=== PATIENT | male | born 1980 | race African-American/Black ===

== ENCOUNTER 2017-01-21 20:49 | Inpatient (IN) | payer OTHER ==
[~2017-01-21] VITALS: Ht 172.7 cm; Wt 67.1 kg
[2017-01-21 21:03] VITALS: BP 153/87; PULSE 81; RESP 16; TEMP 98.6; O2SAT 99
[2017-01-21 22:01] LABS: AUTOMATED NEUTROPHIL # 5.8 TH/MM3 (1.8-7.7); BASOPHIL # 0.1 TH/MM3 (0-0.2); BASOPHIL % 0.9 % (0.0-2.0); EOSINOPHIL # 0.3 TH/MM3 (0-0.4); EOSINOPHIL % 2.9 % (0.0-4.0); HEMATOCRIT 43.6 % (39.0-51.0); HEMO FLAGS DIFF FINAL; LYMPH % 35.9 % (9.0-44.0); MEAN CELL VOLUME 90.8 FL (80.0-100.0); MEAN CORPUSCULAR HEMOGLOBIN 30.4 PG (27.0-34.0); MEAN CORPUSCULAR HGB CONC 33.5 % (32.0-36.0); MONO % 8.7 % (0.0-8.0); NEUT % 51.6 % (16.0-70.0); PLATELET COUNT 249 TH/MM3 (150-450); RED BLOOD COUNT 4.81 MIL/MM3 (4.50-5.90); RED CELL DISTRIBUTION WIDTH 13.7 % (11.6-17.2); WHITE BLOOD COUNT 11.2 TH/MM3 (4.0-11.0)
--- NOTE | 2017-01-21 22:09 | PD ---
HPI . Hallucinations Chief Complaint: Psychiatric Symptoms Time Seen by Provider: 21:25 Travel History International Travel<30 days: No Contact w/Intl Traveler<30days: No Traveled to known affect area: No History of Present Illness HPI I was unable to obtain any history at all from this patient because he basically told me that he wanted me to leave the room. He is a Almanzar Act. He was brought to us because of hallucinations. Do not know his name. He is from [place]. He reportedly has a history of schizophrenia. PFSH Past Medical History Diminished Hearing: No Tetanus Vaccination: Unknown Social History Alcohol Use: Yes Tobacco Use: No Allergies-Medications (Allergen,Severity, Reaction): Coded Allergies: No Known Allergies (Unverified , 01/21/17) Review of Systems ROS Limitations: Uncooperative Physical Exam Narrative GENERAL: Awake and alert and in no acute distress. SKIN: Warm and dry. HEAD: Normocephalic/atraumatic. EYES: Pupils are equal. Extraocular movements are intact. NECK: Normal range of motion. CARDIOVASCULAR: Regular rate and rhythm. RESPIRATORY: Nonlabored respirations. MUSCULOSKELETAL: Atraumatic. NEUROLOGICAL: Nonfocal. PSYCHIATRIC: Unable to assess. Data Data Last Documented VS Vital Signs Date Time Temp Pulse Resp B/P (MAP) Pulse Ox O2 Delivery O2 Flow Rate FiO2 01/21/17 21:03 98.6 81 16 153/87 (109) 99 Orders Orders Complete Blood Count With Diff (01/21/17 21:25) Comprehensive Metabolic Panel (01/21/17 21:25) Psych Screen (01/21/17 21:25) Drug Screen, Random Urine (01/21/17 21:25) Alcohol (Ethanol) (01/21/17 21:25) Labs Laboratory Tests Test 01/21/17 21:35 White Blood Count 11.2 TH/MM3 Red Blood Count 4.81 MIL/MM3 Hemoglobin 14.6 GM/DL Hematocrit 43.6 % Mean Corpuscular Volume 90.8 FL Mean Corpuscular Hemoglobin 30.4 PG Mean Corpuscular Hemoglobin Concent 33.5 % Red Cell Distribution Width 13.7 % Platelet Count 249 TH/MM3 Mean Platelet Volume 9.3 FL Neutrophils (%) (Auto) 51.6 % Lymphocytes (%) (Auto) 35.9 % Monocytes (%) (Auto) 8.7 % Eosinophils (%) (Auto) 2.9 % Basophils (%) (Auto) 0.9 % Neutrophils # (Auto) 5.8 TH/MM3 Lymphocytes # (Auto) 4.0 TH/MM3 Monocytes # (Auto) 1.0 TH/MM3 Eosinophils # (Auto) 0.3 TH/MM3 Basophils # (Auto) 0.1 TH/MM3 CBC Comment DIFF FINAL Differential Comment Blood Urea Nitrogen 10 MG/DL Creatinine 0.98 MG/DL Random Glucose 96 MG/DL Total Protein 7.9 GM/DL Albumin 4.0 GM/DL Calcium Level 8.6 MG/DL Alkaline Phosphatase 84 U/L Aspartate Amino Transf (AST/SGOT) 53 U/L Alanine Aminotransferase (ALT/SGPT) 38 U/L Total Bilirubin 0.3 MG/DL Sodium Level 140 MEQ/L Potassium Level 3.8 MEQ/L Chloride Level 107 MEQ/L Carbon Dioxide Level 26.4 MEQ/L Anion Gap 7 MEQ/L Estimat Glomerular Filtration Rate 80 ML/MIN Ethyl Alcohol Level LESS THAN 3 MG/DL MDM Medical Decision Making Medical Screen Exam Complete: Yes Emergency Medical Condition: Yes Differential Diagnosis Differential diagnosis of psychosis includes but is not limited to schizophrenia , schizoaffective disorder, bipolar disorder, intoxication, substance abuse, dementia Narrative Course This patient is brought to us as a Almanzar Act because of hallucinations. I have initiated a medical clearance exam. Psych screening will then be consult. CBC & BMP Diagram 01/21/17 21:35 Total Protein 7.9, Albumin 4.0, Calcium Level 8.6, Alkaline Phosphatase 84, Aspartate Amino Transf (AST/SGOT) 53 H, Alanine Aminotransferase (ALT/SGPT) 38, Total Bilirubin 0.3 EtOH neg. This patient is medically clear for psychiatric evaluation. Diagnosis Primary Impression: Acute psychosis Condition: Stable Lolis Grady MD Jan 21, 2017 22:09
[2017-01-21 22:28] LABS: ALT (GPT) 38 U/L (12-78)
[2017-01-21 22:31] LABS: ALKALINE PHOSPHATASE 84 U/L (45-117); TOTAL BILIRUBIN ADULT 0.3 MG/DL (0.2-1.0)
[2017-01-21 22:33] LABS: ALCOHOL LESS THAN 3 MG/DL (0-5); ANION GAP 7 MEQ/L (5-15); AST (GOT) 53 U/L (15-37); BICARBONATE 26.4 MEQ/L (21.0-32.0); BLOOD UREA NITROGEN 10 MG/DL (7-18); CHLORIDE 107 MEQ/L (98-107); GLOMERULAR FILTRATION RATE 80 ML/MIN (>89); POTASSIUM 3.8 MEQ/L (3.5-5.1); SODIUM (NA) 140 MEQ/L (136-145)
[2017-01-21] MEDS ORDERED: OLAN20TA PO (22:56)
[2017-01-21] MEDS ORDERED: QUET-88 PO (22:56)
[2017-01-21] MEDS ORDERED: OLAN10TA PO (22:56)
[2017-01-21] MEDS ORDERED: VALP250C PO (22:56)
[2017-01-21] MEDS: QUEtiapine FUMARATE 200 MG TAB PO SCH (23:15)
[2017-01-21] MEDS: VALPROIC ACID 250 MG CAP PO SCH (23:15)
[2017-01-22 03:13] VITALS: BP 100/52; PULSE 76; RESP 18; TEMP 98.2; O2SAT 99
[2017-01-22 06:00] VITALS: BP 100/56; PULSE 73; RESP 16; TEMP 99; O2SAT 100
[2017-01-22] MEDS: VALPROIC ACID 250 MG CAP PO SCH ×3 (09:00→21:05)
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
[2017-01-22] MEDS ORDERED: OLANZapine ODT 10 MG TAB PO ONE (13:00)
[2017-01-22 14:00] VITALS: BP 118/59; PULSE 67; RESP 20
[2017-01-22 18:00] VITALS: BP 122/58; PULSE 77; RESP 20
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
[2017-01-22] MEDS ORDERED: MAGNESIUM HYDROXIDE SUSP 30 ML CUP PO PRN (18:15)
[2017-01-22] MEDS ORDERED: ACETAMINOPHEN 325 MG TAB PO PRN (18:15)
[2017-01-22] MEDS ORDERED: LORazepam 1 MG TAB PO PRN (18:15)
[2017-01-22] MEDS ORDERED: LORazepam 2 MG/ML VIAL IM PRN ×2 (18:15)
[2017-01-22] MEDS ORDERED: diphenhydrAMINE HCL 50 MG CAP PO PRN ×2 (18:15)
[2017-01-22] MEDS ORDERED: ALUMINUM/MAGNESIUM/SIMETH 30 ML CUP PO PRN (18:15)
[2017-01-22] MEDS ORDERED: LORazepam 0.5 MG TAB PO PRN (18:15)
[2017-01-22 19:55] VITALS: BP 130/75; PULSE 67; RESP 18; TEMP 98.3; O2SAT 100
[2017-01-22] MEDS: QUEtiapine FUMARATE 200 MG TAB PO SCH ×2 (21:00→21:05)
[2017-01-22] MEDS: OLANZapine 10 MG TAB PO SCH ×2 (21:00→21:06)
[2017-01-23 06:21] VITALS: BP 127/58; PULSE 70; RESP 16; TEMP 97.9; O2SAT 96
[2017-01-23] MEDS: NICOTINE 21 MG/24 HR PATCH T-DERMAL SCH (09:00)
[2017-01-23] MEDS: OLANZapine 10 MG TAB PO SCH ×2 (09:00→21:00)
[2017-01-23] MEDS: REMOVE OLD PATCH T-DERMAL SCH (09:00)
[2017-01-23] MEDS: VALPROIC ACID 250 MG CAP PO SCH ×2 (09:00→20:20)
[2017-01-23] MEDS ORDERED: INFLUENZA VIRUS VACCINE (QUADRIVALENT) 0.5 ML SYR IM ONE (09:00)
--- NOTE | 2017-01-23 13:06 | EKG ---
Date Performed: 01/23/2017 Time Performed: 11:39:02 PTAGE: 89 years EKG: Prominent precordial voltage Otherwise within normal limits NO PREVIOUS TRACING DOCTOR: Mohsen Patrick Interpretating Date/Time 01/23/2017 13:05:29
--- NOTE | 2017-01-23 15:49 | HHI.PYPN ---
Subjective Chief Complaint: psychosis Remarks This is a request for second opinion. Admission note was reviewed and I agree with this contents. Patient was seen and case was discussed with nursing. Patient has poor insight. His speech is incoherent and is thought process is quite disorganized to the point of being loose. Thought blocking. Continues to refuses by mouth medications. However, no behavioral outbursts on the unit. Mental Status Examination Appearance: Appropriate (under [facility]) Consciousness: Alert Orientation: x4 Motor Activity: Normal gait Speech: Other (answer some questions but for the most part refuses to engage in evaluation) Language: Adequate Fund of Knowledge: Adequate (unable to assess) Attention and Concentration: Inadequate Memory: Unremarkable (and able to assess) Mood: Oppositional Affect: Other (inappropriate smiles the time) Thought Process & Associations: Loose associations Thought Content: Bizarre thinking Hallucination Type: Auditory (appears internally stimulated at times) Delusion Type: None Suicidal Ideation: No Suicidal Plan: No Suicidal Intention: No Homicidal Ideation: No Homicidal Plan: No Homicidal Intention: No Insight: Poor Judgment: Impulsive Results Vitals/IOs Vital Signs Date Time Temp Pulse Resp B/P (MAP) Pulse Ox O2 Delivery O2 Flow Rate FiO2 01/23/17 06:21 97.9 70 16 127/58 (81) 96 01/22/17 18:00 Room Air Assessment & Plan Problem List: (1) Schizoaffective disorder ICD Codes: F25.9 - Schizoaffective disorder, unspecified Assessment & Plan Patient would benefit from a long-acting injection. I recommend treating psychiatrist make a plan with mother next week. I agree with the first opinion to continue petition. Criteria include acute psychosis and poor compliance Justification for Cont. Inpt. Patient would decompensate in a less restrictive setting Victoriano Manuel DO Jan 23, 2017 15:49
[2017-01-23] MEDS ORDERED: OLANZapine 10 MG TAB PO ONE (16:30)
[2017-01-23] MEDS ORDERED: VALPROIC ACID 250 MG CAP PO ONE (16:45)
[2017-01-23 17:18] VITALS: BP 129/74; PULSE 67; RESP 18; TEMP 98.4; O2SAT 100
[2017-01-23] MEDS: QUEtiapine FUMARATE 200 MG TAB PO SCH (20:20)
[2017-01-24 05:47] VITALS: BP 91/52; PULSE 61; RESP 18; TEMP 98; O2SAT 100
[2017-01-24] MEDS: OLANZapine 10 MG TAB PO SCH ×2 (09:00→22:12)
[2017-01-24] MEDS: NICOTINE 21 MG/24 HR PATCH T-DERMAL SCH (09:00)
[2017-01-24] MEDS: VALPROIC ACID 250 MG CAP PO SCH ×2 (09:00→22:13)
[2017-01-24] MEDS: REMOVE OLD PATCH T-DERMAL SCH (09:00)
--- NOTE | 2017-01-24 21:04 | HHI.PYPN ---
Subjective Chief Complaint: psychosis Remarks Patient seen for follow up; chart reviewed. Discussion with nursing staff reported that the patient was paranoid and refusing medications but later was compliant. Patient was found lying on hospital bed, with covers over his head and intermittently cooperative. He states that he lives with his mother and when asked how to spell his mother's first name he states that he had forgotten. Patient noted with thought blocking and internal preoccupation. He states "I can't remember", denies any perceptual disturbances, denies paranoid delusions. He states that when he is at home he usually reads books. Review of Systems Except as stated in HPI: all other systems reviewed are Neg Mental Status Examination Appearance: Appropriate (under [facility]) Consciousness: Alert Orientation: x4 Motor Activity: Normal gait Speech: Other (answer some questions but for the most part refuses to engage in evaluation) Language: Adequate Fund of Knowledge: Adequate (unable to assess) Attention and Concentration: Inadequate Memory: Unremarkable (and able to assess) Mood: Other Affect: Blunt Thought Process & Associations: Loose associations, Disorganized Thought Content: Bizarre thinking Hallucination Type: Auditory (appears internally stimulated at times) Delusion Type: None Suicidal Ideation: No Suicidal Plan: No Suicidal Intention: No Homicidal Ideation: No Homicidal Plan: No Homicidal Intention: No Insight: Poor Judgment: Impulsive Results Vitals/IOs Vital Signs Date Time Temp Pulse Resp B/P (MAP) Pulse Ox O2 Delivery O2 Flow Rate FiO2 01/24/17 05:47 98.0 61 18 91/52 (65) 100 01/22/17 18:00 Room Air Assessment & Plan Problem List: (1) Schizoaffective disorder ICD Codes: F25.9 - Schizoaffective disorder, unspecified Assessment & Plan Patient continues to be noted with thought blocking and internally preoccupied, unable to engage effectively in interview but noted to have more attention to conversation. As patient was recently restarted on his medication regimen, no changes for now. Will continue current treatment and obtain depakote level again as his initial value was subtherapeutic. Collateral from mother pending. Discharge planning in progress. Justification for Cont. Inpt. At risk for further decompensation if at lower level of care. Discharge Planning Patient to return back to his mother's residence once psychiatrically stable. Mateo Chavira MD Jan 24, 2017 21:04
[2017-01-24 21:30] VITALS: BP 128/71; PULSE 61; RESP 18; TEMP 96.7; O2SAT 99
[2017-01-24] MEDS: QUEtiapine FUMARATE 200 MG TAB PO SCH (22:12)
[2017-01-25 06:33] VITALS: BP 102/56; PULSE 69; RESP 16; TEMP 98.1; O2SAT 100
[2017-01-25] MEDS: VALPROIC ACID 250 MG CAP PO SCH ×2 (08:45→21:49)
[2017-01-25] MEDS: OLANZapine 10 MG TAB PO SCH ×2 (08:45→16:43)
[2017-01-25] MEDS: NICOTINE 21 MG/24 HR PATCH T-DERMAL SCH (08:46)
[2017-01-25] MEDS: REMOVE OLD PATCH T-DERMAL SCH (08:46)
[2017-01-25 12:38] LABS: ANION GAP 5 MEQ/L (5-15); BICARBONATE 26.2 MEQ/L (21.0-32.0); BLOOD UREA NITROGEN 11 MG/DL (7-18); CHLORIDE 109 MEQ/L (98-107); GLOMERULAR FILTRATION RATE 146 ML/MIN (>89); POTASSIUM 4.1 MEQ/L (3.5-5.1); SODIUM (NA) 140 MEQ/L (136-145)
[2017-01-25 12:49] LABS: HDL CHOLESTEROL 56.6 MG/DL (40.0-60.0); LDL CHOLESTEROL 56 MG/DL (0-99)
[2017-01-25 13:54] LABS: HEMOGLOBIN A1a 1.5 %; HEMOGLOBIN A1b 0.7 %; HEMOGLOBIN F 0.9 %; HEMOGLOBIN LA1C 1.7 %; HEMOGLOBIN P3 3.1 %
--- NOTE | 2017-01-25 14:48 | HHI.PYPN ---
Subjective Chief Complaint: psychosis Remarks Patient seen for follow-up, chart reviewed. Discussion she staff reported the patient has limited interaction with staff. Patient was found lying in hospital bed with covers over his head stating feeling "fine, alright" and continues report at the same response to multiple questions. Patient was alert and oriented only to person stating the brother United Jeffery was Thompson. Patient denies any perceptual disturbances or delusions but noted to be disorganized and unable to engage effectively in interview today. Review of Systems Except as stated in HPI: all other systems reviewed are Neg Mental Status Examination Appearance: Appropriate (under hospital [facility]) Consciousness: Alert Orientation: x4 Motor Activity: Normal gait Speech: Other (answer some questions but for the most part refuses to engage in evaluation) Language: Adequate Fund of Knowledge: Adequate (unable to assess) Attention and Concentration: Inadequate Memory: Unremarkable (and able to assess) Mood: Other ("fine, alright") Affect: Blunt Thought Process & Associations: Loose associations, Disorganized Thought Content: Bizarre thinking Hallucination Type: Auditory (appears internally stimulated at times) Delusion Type: None Suicidal Ideation: No Suicidal Plan: No Suicidal Intention: No Homicidal Ideation: No Homicidal Plan: No Homicidal Intention: No Insight: Poor Judgment: Impulsive Results Labs Labs reviewed Test 01/25/17 11:30 Blood Urea Nitrogen 11 MG/DL Creatinine 0.73 MG/DL Random Glucose 97 MG/DL Calcium Level 8.6 MG/DL Sodium Level 140 MEQ/L Potassium Level 4.1 MEQ/L Chloride Level 109 MEQ/L Carbon Dioxide Level 26.2 MEQ/L Anion Gap 5 MEQ/L Estimat Glomerular Filtration Rate 146 ML/MIN Hemoglobin A1c 5.4 % Triglycerides Level 103 MG/DL Cholesterol Level 133 MG/DL LDL Cholesterol 56 MG/DL HDL Cholesterol 56.6 MG/DL Cholesterol/HDL Ratio 2.34 RATIO Thyroid Stimulating Hormone 3rd Gen 1.270 uIU/ML Vitals/IOs Vital Signs Date Time Temp Pulse Resp B/P (MAP) Pulse Ox O2 Delivery O2 Flow Rate FiO2 01/25/17 06:33 98.1 69 16 102/56 (71) 100 01/22/17 18:00 Room Air Intake and Output 01/25/17 01/25/17 01/26/17 08:00 16:00 00:00 Intake Total 960 ml 480 ml Balance 960 ml 480 ml Assessment & Plan Problem List: (1) Schizoaffective disorder ICD Codes: F25.9 - Schizoaffective disorder, unspecified Assessment & Plan He continues to be disorganized, internally preoccupied, unable to engage effectively in interview at times making nonsensical gestures and answering appropriately. Due to history of patient cheeking medications will advise staff for mouth checks when administering medications. We'll increase quetiapine 25 mg by mouth 0900 hrs. and 1600 hrs., Continue rest of medications. Collateral pending from patient's mother. Discharge planning in progress Justification for Cont. Inpt. At risk for further decompensation if at lower level of care Discharge Planning Patient to return back to his residence was psychiatrically stable. Mateo Chavira MD Jan 25, 2017 14:48
[2017-01-25] MEDS: QUEtiapine FUMARATE 25 MG TAB PO SCH (16:43)
[2017-01-25 18:00] VITALS: BP 138/67; PULSE 83; RESP 18; TEMP 97.6; O2SAT 96
[2017-01-25] MEDS: QUEtiapine FUMARATE 200 MG TAB PO SCH (21:49)
[2017-01-26 06:00] VITALS: BP 95/54; PULSE 73; RESP 17; TEMP 97.7; O2SAT 98
[2017-01-26] MEDS: VALPROIC ACID 250 MG CAP PO SCH ×2 (08:22→21:00)
[2017-01-26] MEDS: OLANZapine 10 MG TAB PO SCH ×2 (08:22→21:19)
[2017-01-26] MEDS: QUEtiapine FUMARATE 25 MG TAB PO SCH ×2 (08:23→15:44)
[2017-01-26] MEDS: REMOVE OLD PATCH T-DERMAL SCH (08:24)
[2017-01-26] MEDS: NICOTINE 21 MG/24 HR PATCH T-DERMAL SCH (08:24)
--- NOTE | 2017-01-26 16:10 | HHI.PYPN ---
Subjective Chief Complaint: psychosis Remarks Patient seen for follow-up, chart reviewed. Discussion she staff reported that patient will interact with staff, and appears to be internally still stimulated and initially refused medication last evening but did take. Patient was found in the [facility], cooperative interview today. Patient states that he is feeling "terrific". Patient stated he started medications well. Whenever asked a question about his history patient simply states "I can't remember". Patient was able to state that he lives with his mother "sometimes" and when asked what else he lives aside from with his mother he states "I can't remember ". Patient denies any perceptual disturbances or delusions and has questions with "something like that". And noted to be disorganized and unable to recall information adequately. Review of Systems Except as stated in HPI: all other systems reviewed are Neg Mental Status Examination Appearance: Appropriate (under [facility]) Consciousness: Alert Orientation: x4 Motor Activity: Normal gait Speech: Other (answer some questions but for the most part refuses to engage in evaluation) Language: Adequate Fund of Knowledge: Adequate (unable to assess) Attention and Concentration: Inadequate Memory: Unremarkable (and able to assess) Mood: Other ("fine, alright") Affect: Blunt Thought Process & Associations: Loose associations, Disorganized Thought Content: Bizarre thinking, Thought blocking Hallucination Type: Auditory (appears internally stimulated at times) Delusion Type: None Suicidal Ideation: No Suicidal Plan: No Suicidal Intention: No Homicidal Ideation: No Homicidal Plan: No Homicidal Intention: No Insight: Poor Judgment: Impulsive Results Vitals/IOs Vital Signs Date Time Temp Pulse Resp B/P (MAP) Pulse Ox O2 Delivery O2 Flow Rate FiO2 01/26/17 06:00 97.7 73 17 95/54 (68) 98 01/22/17 18:00 Room Air Assessment & Plan Problem List: (1) Schizoaffective disorder ICD Codes: F25.9 - Schizoaffective disorder, unspecified Assessment & Plan Patient at this time continues to be noted to be disorganized but was noted to be interactive slightly more today than yesterday. Agrees quetiapine to 50 mg by mouth twice a day along with 400 mg at bedtime. Continue rest of medications. Attempt to obtain collateral from his mother (Candelario Dia ) was unsuccessful but typewriters functional tester left voice message for patient's mother to call back. Discharge planning in progress Justification for Cont. Inpt. At risk for further decompensation if at lower level of care Discharge Planning He should return back to his mother's residence once psychiatrically stable. Mateo Chavira MD Jan 26, 2017 16:10
[2017-01-26 16:44] VITALS: BP 120/58; PULSE 79; RESP 18; TEMP 98.2; O2SAT 100
[2017-01-26] MEDS: QUEtiapine FUMARATE 200 MG TAB PO SCH (21:19)
[2017-01-27 05:31] VITALS: BP 105/57; PULSE 77; RESP 16; TEMP 97.6; O2SAT 98
[2017-01-27] MEDS: NICOTINE 21 MG/24 HR PATCH T-DERMAL SCH (08:43)
[2017-01-27] MEDS: REMOVE OLD PATCH T-DERMAL SCH (08:43)
[2017-01-27] MEDS: OLANZapine 10 MG TAB PO SCH ×2 (08:43→21:03)
[2017-01-27] MEDS: VALPROIC ACID 250 MG CAP PO SCH ×2 (08:43→21:04)
[2017-01-27] MEDS: QUEtiapine FUMARATE 25 MG TAB PO SCH ×2 (08:43→15:46)
--- NOTE | 2017-01-27 09:47 | PD.TTN ---
Patient Problems 1. Discharge planning 2. Medication compliance 3. Knowledge deficit 4. Lack of coping skills Progress Toward Goals Provider Present: Dr. Devika Chavira Provider Input: 01/26/2017 Patient is presently on two anti-psychotic medications, however, he remains psychotic. Dr. Chavira requested this counslor speak to patient's mother to obtain collateral information. Psychiatric Counselors Present: HELEN Espino Psych Therapist Input: 01/26/2017 Counselor will contact patient's mother, Candelario Dia, , to obtain collaterail information. Group Spec/RT/OT/MEDINA Present: ADAM Guzman Group Spec/RT/OT/MEDINA Input: 01/26/2017 Patient only participates in select groups. Discharge Plan Patient will be discharged home to his mother's house when stable and deemed appropriate by Dr. Chavira. Documentation Scribe: HELEN Espino Date Resolved: Jan 26, 2017 Adele Juárez Jan 27, 2017 09:47
--- NOTE | 2017-01-27 14:16 | HHI.PYPN ---
Subjective Chief Complaint: psychosis Remarks Patient seen for follow-up, chart review. Discussion with nursing staff supported the patient seclusive and out only for meals. Patient was found lying in hospital bed was noted to be superficially cooperative stating that he did not want to participate in interview stated that he was tired and wanted grant writer to return later to speak with him. Patient later was another station requesting to speak with grant writer which she stated that he had been feeling "alright". Patient continues to be's noted to be disorganized and unable to answer adequately to questions, he continues to state "I don't know". Patient states he has not spoken with his mother since admission. She denies any perceptual stressors or delusions but appears to be internally preoccupied. Patient has had mental health court today but refused to attend which formal service waiter after hearing the case decided to have patient retained for further hospitalization. Cousin reported that patient did attend group today. Review of Systems Except as stated in HPI: all other systems reviewed are Neg Mental Status Examination Appearance: Appropriate (under hospital [facility]) Consciousness: Alert Orientation: x4 Motor Activity: Normal gait Speech: Other (answer some questions but for the most part refuses to engage in evaluation) Language: Adequate Fund of Knowledge: Adequate (unable to assess) Attention and Concentration: Inadequate Memory: Unremarkable (and able to assess) Mood: Other ("alright") Affect: Blunt Thought Process & Associations: Loose associations, Disorganized Thought Content: Bizarre thinking, Thought blocking Hallucination Type: Auditory (appears internally stimulated at times) Delusion Type: None Suicidal Ideation: No Suicidal Plan: No Suicidal Intention: No Homicidal Ideation: No Homicidal Plan: No Homicidal Intention: No Insight: Poor Judgment: Impulsive Results Vitals/IOs Vital Signs Date Time Temp Pulse Resp B/P (MAP) Pulse Ox O2 Delivery O2 Flow Rate FiO2 01/27/17 05:31 97.6 77 16 105/57 (44) 98 Assessment & Plan Problem List: (1) Schizoaffective disorder ICD Codes: F25.9 - Schizoaffective disorder, unspecified Assessment & Plan She continues to be internally preoccupied was noted to be slightly more engaging despite patient continuing to answer "I don't know" to all questions. Although patient does not engage much in conversation today he was noted to participate in group which he had not done previously. We'll continue to titrate quetiapine to 75 mg by mouth twice a day, 600 mg by mouth at bedtime. Continue rest of medications. Continue to encourage patient with a personal hygiene and participate in groups and activities while on the unit. Collateral admission pending from mother. Discharge planning in progress. Justification for Cont. Inpt. At risk for further decompensation if at lower level of care Discharge Planning Patient to return back to his residence once psychiatrically stable. Mateo Chavira MD Jan 27, 2017 14:16
[2017-01-27 16:32] VITALS: BP 128/65; PULSE 83; RESP 17; TEMP 97.7; O2SAT 99
[2017-01-27] MEDS: QUEtiapine FUMARATE 200 MG TAB PO SCH (21:04)
[2017-01-28 05:10] VITALS: BP 101/61; PULSE 99; RESP 16; TEMP 98; O2SAT 99
[2017-01-28 07:25] LABS: BASOPHIL # 0.1 TH/MM3 (0-0.2); BASOPHIL % 0.8 % (0.0-2.0); EOSINOPHIL # 0.3 TH/MM3 (0-0.4); EOSINOPHIL % 3.8 % (0.0-4.0); HEMATOCRIT 38.3 % (39.0-51.0); HEMO FLAGS DIFF FINAL; LYMPHOCYTE # 3.1 TH/MM3 (1.0-4.8); MEAN CELL VOLUME 89.9 FL (80.0-100.0); MEAN CORPUSCULAR HEMOGLOBIN 30.9 PG (27.0-34.0); MEAN CORPUSCULAR HGB CONC 34.3 % (32.0-36.0); MONO % 4.8 % (0.0-8.0); NEUT % 55.6 % (16.0-70.0); PLATELET COUNT 232 TH/MM3 (150-450); RED BLOOD COUNT 4.26 MIL/MM3 (4.50-5.90); RED CELL DISTRIBUTION WIDTH 14.1 % (11.6-17.2)
[2017-01-28 07:41] LABS: BICARBONATE 28.2 MEQ/L (21.0-32.0); POTASSIUM 3.9 MEQ/L (3.5-5.1)
[2017-01-28 07:46] LABS: INDIRECT BILIRUBIN 0.1 MG/DL (0.0-0.8); TOTAL BILIRUBIN ADULT 0.2 MG/DL (0.2-1.0)
[2017-01-28] MEDS: VALPROIC ACID 250 MG CAP PO SCH ×2 (08:27→21:22)
[2017-01-28] MEDS: OLANZapine 10 MG TAB PO SCH ×2 (08:27→21:22)
[2017-01-28] MEDS: NICOTINE 21 MG/24 HR PATCH T-DERMAL SCH (08:28)
[2017-01-28] MEDS: QUEtiapine FUMARATE 25 MG TAB PO SCH ×2 (08:29→16:03)
[2017-01-28] MEDS: REMOVE OLD PATCH T-DERMAL SCH (08:51)
--- NOTE | 2017-01-28 09:55 | HHI.PYPN ---
Subjective Chief Complaint: psychosis Remarks The patient was seen today for psychiatric reevaluation. Chart was reviewed. Dr. Chavira follow-ups were reviewed. Case discussed with the nursing in charge. Patient was found in his room, when I try to engaging in a conversation he walked out of the room. I try again to talk to him in the recreational area, but the patient was selectively mute, very oppositional and irritable. Reportedly the patient has been internally preoccupied, talking to himself, disorganized, but no agitation or aggressive behavior reported. The patient has been compliant with his medications, no significant side effects noted. Review of Systems Except as stated in HPI: all other systems reviewed are Neg Mental Status Examination Appearance: Appropriate (under [facility]) Consciousness: Alert Orientation: x4 Motor Activity: Normal gait Speech: Other (answer some questions but for the most part refuses to engage in evaluation) Language: Adequate Fund of Knowledge: Adequate (unable to assess) Attention and Concentration: Inadequate Memory: Unremarkable (and able to assess) Mood: Other ("alright") Affect: Blunt Thought Process & Associations: Loose associations, Disorganized Thought Content: Bizarre thinking, Thought blocking Hallucination Type: Auditory (appears internally stimulated at times) Delusion Type: None Suicidal Ideation: No Suicidal Plan: No Suicidal Intention: No Homicidal Ideation: No Homicidal Plan: No Homicidal Intention: No Insight: Poor Judgment: Impulsive Results Labs Test 01/28/17 05:48 White Blood Count 9.0 TH/MM3 Red Blood Count 4.26 MIL/MM3 Hemoglobin 13.1 GM/DL Hematocrit 38.3 % Mean Corpuscular Volume 89.9 FL Mean Corpuscular Hemoglobin 30.9 PG Mean Corpuscular Hemoglobin Concent 34.3 % Red Cell Distribution Width 14.1 % Platelet Count 232 TH/MM3 Mean Platelet Volume 9.0 FL Neutrophils (%) (Auto) 55.6 % Lymphocytes (%) (Auto) 35.0 % Monocytes (%) (Auto) 4.8 % Eosinophils (%) (Auto) 3.8 % Basophils (%) (Auto) 0.8 % Neutrophils # (Auto) 5.0 TH/MM3 Lymphocytes # (Auto) 3.1 TH/MM3 Monocytes # (Auto) 0.4 TH/MM3 Eosinophils # (Auto) 0.3 TH/MM3 Basophils # (Auto) 0.1 TH/MM3 CBC Comment DIFF FINAL Differential Comment Blood Urea Nitrogen 16 MG/DL Creatinine 0.66 MG/DL Random Glucose 88 MG/DL Total Protein 6.0 GM/DL Albumin 3.1 GM/DL Calcium Level 8.8 MG/DL Alkaline Phosphatase 61 U/L Aspartate Amino Transf (AST/SGOT) 13 U/L Alanine Aminotransferase (ALT/SGPT) 24 U/L Total Bilirubin 0.2 MG/DL Direct Bilirubin 0.1 MG/DL Sodium Level 143 MEQ/L Potassium Level 3.9 MEQ/L Chloride Level 110 MEQ/L Carbon Dioxide Level 28.2 MEQ/L Anion Gap 5 MEQ/L Estimat Glomerular Filtration Rate 164 ML/MIN Indirect Bilirubin 0.1 MG/DL Valproic Acid (Depakene) Level 62 MCG/ML Vitals/IOs Vital Signs Date Time Temp Pulse Resp B/P (MAP) Pulse Ox O2 Delivery O2 Flow Rate FiO2 01/28/17 05:10 98.0 99 16 101/61 (74) 99 Assessment & Plan Problem List: (1) Schizoaffective disorder ICD Codes: F25.9 - Schizoaffective disorder, unspecified Assessment & Plan: Continue current psychotropic regimen. Continue trying to engage the patient in activities in the unit. Assessment & Plan Estimated LOS: days Justification for Cont. Inpt. The patient is acutely psychotic and needs to continue psychiatric hospitalization for stabilization. Abhilash Holden MD Jan 28, 2017 09:55
[2017-01-28 17:24] VITALS: BP 121/63; PULSE 88; RESP 16; TEMP 98.6; O2SAT 99
[2017-01-28] MEDS: QUEtiapine FUMARATE 200 MG TAB PO SCH (21:23)
[2017-01-29 05:46] VITALS: BP 100/55; PULSE 71; RESP 18; TEMP 98; O2SAT 97
[2017-01-29] MEDS: REMOVE OLD PATCH T-DERMAL SCH (09:00)
[2017-01-29] MEDS: NICOTINE 21 MG/24 HR PATCH T-DERMAL SCH (09:00)
[2017-01-29] MEDS: OLANZapine 10 MG TAB PO SCH ×2 (09:05→21:17)
[2017-01-29] MEDS: VALPROIC ACID 250 MG CAP PO SCH ×2 (09:05→21:18)
[2017-01-29] MEDS: QUEtiapine FUMARATE 25 MG TAB PO SCH ×2 (09:08→16:28)
--- NOTE | 2017-01-29 14:43 | HHI.PYPN ---
Subjective Chief Complaint: psychosis Remarks Patient was seen and case discussed with nursing. Patient remains quite disorganized and loose. Seclusive to his room. He has difficulty expressing his thoughts in a coherent manner. Is alert and oriented times 2. Affect is anxious. Behaving well on the unit Mental Status Examination Appearance: Appropriate (under [facility]) Consciousness: Alert Orientation: x4 Motor Activity: Normal gait Speech: Other (answer some questions but for the most part refuses to engage in evaluation) Language: Adequate Fund of Knowledge: Adequate (unable to assess) Attention and Concentration: Inadequate Memory: Unremarkable (and able to assess) Mood: Other ("alright") Affect: Blunt Thought Process & Associations: Loose associations, Circumstantial, Disorganized Thought Content: Bizarre thinking, Thought blocking Hallucination Type: Auditory (appears internally stimulated at times) Delusion Type: None Suicidal Ideation: No Suicidal Plan: No Suicidal Intention: No Homicidal Ideation: No Homicidal Plan: No Homicidal Intention: No Insight: Poor Judgment: Impulsive Results Vitals/IOs Vital Signs Date Time Temp Pulse Resp B/P (MAP) Pulse Ox O2 Delivery O2 Flow Rate FiO2 01/29/17 05:46 98.0 71 18 100/55 (70) 97 Intake and Output 01/29/17 01/29/17 01/30/17 08:00 16:00 00:00 Intake Total 520 ml 480 ml Balance 520 ml 480 ml Assessment & Plan Problem List: (1) Schizoaffective disorder ICD Codes: F25.9 - Schizoaffective disorder, unspecified Assessment & Plan Continue current treatment plan Justification for Cont. Inpt. Patient would decompensate in a less restrictive setting Victoriano Manuel DO Jan 29, 2017 14:43
[2017-01-29 18:22] VITALS: BP 126/63; PULSE 93; RESP 18; TEMP 96.7; O2SAT 99
[2017-01-29] MEDS: QUEtiapine FUMARATE 200 MG TAB PO SCH (21:17)
[2017-01-30 06:00] VITALS: BP 119/66; PULSE 78; RESP 17; TEMP 97.5; O2SAT 97
[2017-01-30] MEDS: OLANZapine 10 MG TAB PO SCH ×2 (08:06→21:46)
[2017-01-30] MEDS: VALPROIC ACID 250 MG CAP PO SCH ×2 (08:06→21:46)
[2017-01-30] MEDS: QUEtiapine FUMARATE 25 MG TAB PO SCH ×2 (08:10→16:14)
[2017-01-30] MEDS: REMOVE OLD PATCH T-DERMAL SCH (08:11)
[2017-01-30] MEDS: NICOTINE 21 MG/24 HR PATCH T-DERMAL SCH (08:11)
--- NOTE | 2017-01-30 11:40 | HHI.PYPN ---
Subjective Chief Complaint: psychosis Remarks Patient was seen and case discussed with nursing. Today patient is very guarded , refusing the interview. He would not specify why nursing says this is a change in behavior from this morning. He is eating and sleeping well. And is compliant with medications Mental Status Examination Appearance: Appropriate (under [facility]) Consciousness: Alert Orientation: x4 Motor Activity: Normal gait Speech: Other (answer some questions but for the most part refuses to engage in evaluation) Language: Adequate Fund of Knowledge: Adequate (unable to assess) Attention and Concentration: Inadequate Memory: Unremarkable (and able to assess) Mood: Other ("alright") Affect: Blunt Thought Process & Associations: Loose associations, Circumstantial, Disorganized Thought Content: Bizarre thinking, Thought blocking Hallucination Type: Auditory (appears internally stimulated at times) Delusion Type: None Suicidal Ideation: No Suicidal Plan: No Suicidal Intention: No Homicidal Ideation: No Homicidal Plan: No Homicidal Intention: No Insight: Poor Judgment: Impulsive Results Vitals/IOs Vital Signs Date Time Temp Pulse Resp B/P (MAP) Pulse Ox O2 Delivery O2 Flow Rate FiO2 01/30/17 06:00 97.5 78 17 119/66 (83) 97 Assessment & Plan Problem List: (1) Schizoaffective disorder ICD Codes: F25.9 - Schizoaffective disorder, unspecified Assessment & Plan Continue current treatment plan Justification for Cont. Inpt. Patient will decompensate in a less restrictive setting Victoriano Manuel DO Jan 30, 2017 11:40
[2017-01-30 18:26] VITALS: BP 120/70; PULSE 78; RESP 18; TEMP 98; O2SAT 99
[2017-01-30] MEDS: QUEtiapine FUMARATE 200 MG TAB PO SCH (21:46)
[2017-01-31 06:04] VITALS: BP 103/59; PULSE 70; RESP 16; TEMP 97.7
--- NOTE | 2017-01-31 08:48 | HHI.PYPN ---
Subjective Chief Complaint: psychosis Remarks Patient seen for follow-up, chart reviewed. Discussion she staff reported the patient to comply medications noted to be internally preoccupied and having bizarre behavior. Patient is found lying in hospital bed sufficient cooperative interview today with covers over his head. Patient states that he is feeling "alright" denies any difficulty with sleep, difficulty eating and drinking states that it was "okay". Patient not be somewhat disorganized during interview unable to answer questions appropriately stating that he "forgot" when asked about how things are like where he is much better. Patient states that his goals when he goes home with her to be "be okay.... The quiet.... be myself....". when asked about perceptual disturbances such as auditory hallucinations he states "not really" when attempted to explore this patient noted to be somewhat irritable stating again "not really!". Patient appears to be paranoid, and when asked about this patient states "I don't know" . Patient denies I spoke with his mother over the weekend but did admit to going to some groups and activities but since admission when telegraphic typewriter installer interviews patient patient always found in bed with covers over his head. Review of Systems Except as stated in HPI: all other systems reviewed are Neg Mental Status Examination Appearance: Appropriate Consciousness: Alert Orientation: x4 Motor Activity: Normal gait Speech: Other (answer some questions but for the most part refuses to engage in evaluation) Language: Adequate Fund of Knowledge: Adequate (unable to assess) Attention and Concentration: Inadequate Memory: Unremarkable (unable to assess, limited cooperation) Mood: Other ("alright") Affect: Blunt Thought Process & Associations: Circumstantial, Disorganized Thought Content: Bizarre thinking, Thought blocking Hallucination Type: Auditory (appears internally stimulated at times, and vague about auditory hallucinations) Delusion Type: None Suicidal Ideation: No Suicidal Plan: No Suicidal Intention: No Homicidal Ideation: No Homicidal Plan: No Homicidal Intention: No Insight: Poor Judgment: Impulsive Results Vitals/IOs Vital Signs Date Time Temp Pulse Resp B/P (MAP) Pulse Ox O2 Delivery O2 Flow Rate FiO2 01/31/17 06:04 97.7 70 16 103/59 (74) 01/30/17 18:26 99 Intake and Output 01/31/17 01/31/17 02/01/17 08:00 16:00 00:00 Intake Total 360 ml Balance 360 ml Assessment & Plan Problem List: (1) Schizoaffective disorder ICD Codes: F25.9 - Schizoaffective disorder, unspecified Assessment & Plan Patient continues to be noted to be disorganized, noted bizarre behavior as per nursing staff, paranoid and internally preoccupied during interview as well as observed on the unit. Although patient denies auditory hallucinations suspected patient is responding to internal stimuli. Patient continues to be unable to engage in interview adequately although somewhat improved since admission. We'll increase quetiapine to 100/100/400mg with upward titration as needed for psychosis. We'll attempt to contact mother again to obtain collateral as well as to ask patient mother to coming to visit patient. Continue observation would behavior. Continue to encourage patient to maintain personal hygiene as well as attend groups activities while on the unit. Discharge planning in progress. Justification for Cont. Inpt. At risk for further decompensation if at lower level of care. Discharge Planning Patient to be discharged back to his mother's residence once psychiatrically stable. Mateo Chavira MD Jan 31, 2017 08:48
[2017-01-31] MEDS: REMOVE OLD PATCH T-DERMAL SCH (09:00)
[2017-01-31] MEDS: NICOTINE 21 MG/24 HR PATCH T-DERMAL SCH (09:00)
[2017-01-31] MEDS: VALPROIC ACID 250 MG CAP PO SCH ×2 (10:20→21:36)
[2017-01-31] MEDS: OLANZapine 10 MG TAB PO SCH ×2 (10:20→21:36)
[2017-01-31] MEDS: QUEtiapine FUMARATE 100 MG TAB PO SCH ×2 (10:20→16:21)
--- NOTE | 2017-01-31 14:08 | PD.TTN ---
Patient Problems 1. Discharge planning 2. Medication compliance 3. Knowledge deficit 4. Lack of coping skills Progress Toward Goals Provider Present: Dr. Devika Chavira Provider Input: 01/31/17 Dr. Chavira reports is continuing to manage patient's medications. Behavior was psychotic and oppositional over the weekend. 01/26/2017 Patient is presently on two anti-psychotic medications, however, he remains psychotic. Dr. Chavira requested this counslor speak to patient's mother to obtain collateral information. Psychiatric Counselors Present: HELEN Espino Psych Therapist Input: 01/31/17 Patient will be discharged home to his mother's house when stabilized. 01/26/2017 Counselor will contact patient's mother, Candelario Dia, , to obtain collaterail information. Group Spec/RT/OT/MEDINA Present: KANNAN Pierre, ADAM Guzman Group Spec/RT/OT/MEDINA Input: 01/31/17 Attends select group activities. Isolates to self. 01/26/2017 Patient only participates in select groups. Discharge Plan Patient will be discharged home to his mother's house when stable and deemed appropriate by Dr. Chavira. Documentation Scribe: HELEN Espino Date Resolved: Jan 31, 2017 Adele Juárez Jan 31, 2017 14:08
[2017-01-31 17:47] VITALS: BP 125/66; PULSE 92; RESP 18; TEMP 97.9; O2SAT 100
[2017-01-31] MEDS: QUEtiapine FUMARATE 200 MG TAB PO SCH (21:35)
[2017-02-01 06:04] VITALS: BP 103/51; PULSE 79; RESP 16; TEMP 97.8
[2017-02-01] MEDS: VALPROIC ACID 250 MG CAP PO SCH ×2 (08:24→21:41)
[2017-02-01] MEDS: OLANZapine 10 MG TAB PO SCH ×2 (08:24→21:41)
[2017-02-01] MEDS: QUEtiapine FUMARATE 100 MG TAB PO SCH ×2 (08:25→16:33)
[2017-02-01] MEDS: NICOTINE 21 MG/24 HR PATCH T-DERMAL SCH (08:28)
[2017-02-01] MEDS: REMOVE OLD PATCH T-DERMAL SCH (08:28)
--- NOTE | 2017-02-01 10:34 | HHI.PYPN ---
Subjective Chief Complaint: psychosis Remarks Patient is seen for follow-up, chart review. Patient is found lying in hospital bed noted to be irritable and guarded and refused to cooperate interview today. Patient was found with covers over his head stating "I just the medicine I one) now". Urged to interact with interview but continued to be irritable and slightly agitated and continues to state that he does not want to speak with life underwriter at this time and refused to continue the answer. Discussion with therapist who had interact with patient today stated the patient was denying any personal disturbances but was noted to be internally preoccupied when asked about auditory hallucinations. Patient has been attending some groups such as activity outside but has a minimally interactive with staff. Review of Systems Except as stated in HPI: all other systems reviewed are Neg Mental Status Examination Appearance: Appropriate Consciousness: Alert Orientation: x4 Motor Activity: Normal gait Speech: Other (answer some questions but for the most part refuses to engage in evaluation) Language: Adequate Fund of Knowledge: Adequate (unable to assess) Attention and Concentration: Inadequate Memory: Unremarkable (unable to assess, limited cooperation) Mood: Irritable Affect: Irritable, Other (slightly agitated) Thought Process & Associations: Disorganized Thought Content: Bizarre thinking, Thought blocking Hallucination Type: Auditory (appears internally stimulated at times, and vague about auditory hallucinations) Delusion Type: None Suicidal Ideation: No Suicidal Plan: No Suicidal Intention: No Homicidal Ideation: No Homicidal Plan: No Homicidal Intention: No Insight: Poor Judgment: Impulsive Results Vitals/IOs Vital Signs Date Time Temp Pulse Resp B/P (MAP) Pulse Ox O2 Delivery O2 Flow Rate FiO2 02/01/17 06:04 97.8 79 16 103/51 (68) 01/31/17 17:47 100 Assessment & Plan Problem List: (1) Schizoaffective disorder ICD Codes: F25.9 - Schizoaffective disorder, unspecified Assessment & Plan Visual the time continues to be noted to be very guarded, minimally interactive with staff, internally preoccupied at times and unable to engage appropriately during interview. Attempts to contact patient's mother had been a successful will continue to try to make contact with patient's mother for collateral as well as to assess baseline. We'll continue to increase quetiapine 150/150/400mg , continuous rest of medications. Continue to encourage patient to maintain personal hygiene and participate in groups and activities while the unit. Discharge planning in progress Justification for Cont. Inpt. At risk for further decompensation event lower level of care Discharge Planning Patient to return back to mother's residence once psychiatrically stable Mateo Chavira MD Feb 01, 2017 10:34
[2017-02-01] MEDS: QUEtiapine FUMARATE 25 MG TAB PO SCH (16:33)
[2017-02-01 18:17] VITALS: BP 122/62; PULSE 88; RESP 16; TEMP 98.4; O2SAT 100
[2017-02-01] MEDS: QUEtiapine FUMARATE 200 MG TAB PO SCH (21:41)
[2017-02-02 05:58] VITALS: BP 102/54; PULSE 74; RESP 16; TEMP 97.7; O2SAT 98
[2017-02-02] MEDS: OLANZapine 10 MG TAB PO SCH ×2 (08:46→21:34)
[2017-02-02] MEDS: VALPROIC ACID 250 MG CAP PO SCH ×2 (08:46→21:34)
[2017-02-02] MEDS: QUEtiapine FUMARATE 25 MG TAB PO SCH ×2 (08:47→16:16)
[2017-02-02] MEDS: QUEtiapine FUMARATE 100 MG TAB PO SCH ×2 (08:50→16:17)
[2017-02-02] MEDS: REMOVE OLD PATCH T-DERMAL SCH (08:50)
[2017-02-02] MEDS: NICOTINE 21 MG/24 HR PATCH T-DERMAL SCH (08:51)
--- NOTE | 2017-02-02 13:39 | PD.TTN ---
Patient Problems 1. Discharge planning 2. Medication compliance 3. Knowledge deficit 4. Lack of coping skills Progress Toward Goals Provider Present: Dr. Devika Chavira Provider Input: 01/31/17 Dr. Chavira reports is continuing to manage patient's medications. Behavior was psychotic and oppositional over the weekend. 01/26/2017 Patient is presently on two anti-psychotic medications, however, he remains psychotic. Dr. Chavira requested this counslor speak to patient's mother to obtain collateral information. 02/02/17 Patient continues to meet criteria, guarded, increasing medication Nurse(s) Input: 02/02/17 Patient's nurse Pat reports patient is calm, pleasant, and cooperative. Medication compliant. Patient is in good behaviorial control. He denies suicidal and homicidal ideation. Patient denies hearing voices. Psychiatric Counselors Present: HELEN Arellano, HELEN Espino Psych Therapist Input: 01/31/17 Patient will be discharged home to his mother's house when stabilized. 01/26/2017 Counselor will contact patient's mother, Candelario Dia, , to obtain collaterail information. 02/02/17 Patient reports not feeling suicidal or homicidal. Patient presents childlike, depressed, affect flat, poor eye contact. Patient's speech is clear, low, minimal and pressured. Patient did not present internally stimulated or with any delusional content. patient will remain on unit at this time. Group Spec/RT/OT/MEDINA Present: Rosina Fritz, KANNAN, ADAM Guzman Group Spec/RT/OT/MEDINA Input: 01/31/17 Attends select group activities. Isolates to self. 01/26/2017 Patient only participates in select groups. 02/02/17 Patient attends selective groups. Does not participate, isolates, seclusive Discharge Plan Patient will be discharged home to his mother's house when stable and deemed appropriate by Dr. Chavira. Documentation Scribe: HELEN Espino Date Resolved: Jan 31, 2017 Nancy Thomas Feb 02, 2017 13:39
--- NOTE | 2017-02-02 15:45 | HHI.PYPN ---
Subjective Chief Complaint: psychosis Remarks Patient seen for follow-up, chart reviewed. Discussion with nursing staff reported the patient has been calm and cooperative, at times noted to be internally preoccupied but attending groups with limited participation. Patient was found in the area further, cooperative stated he is feeling "fine" patient states that he continues to have's auditory hallucinations but was able describe intensity or frequency or content. Patient states that they're hallucinations are "like that" (hand gesturing as if saying so-so). Patient states these feeling well his current medications denying any adverse drug reactions. Patient is attending groups and more visible on the unit now not a seclusive abuse for. Collateral information: Radio Interference Trouble Shooter contacted the patient's mother ([phone]) stated that she had been trying to keep in contact with nursing staff who she calls to find how he's doing and states that it appears he is doing much better. She also reports that she has been having difficulty, so the patient that she is currently trying to find assisted living facility for her father as well as trying to help another family member. She states that when her son has decompensated he is usually loud, noted to have conversations with several people and cursing. She states that she will come in this evening to meet with the patient and to assess how much he has progressed. She also mentions that prior to hospitalization patient was living at home for some time after being at [facility] for about a year which she states was not happy with that she found out that other clients were administering medications to other clients. She reports that she plans on having patient come home one psychiatric stable and will begin searching for an assisted living facility for the patient as it is his wish to return back to an assisted living facility. Review of Systems Except as stated in HPI: all other systems reviewed are Neg Mental Status Examination Appearance: Appropriate Consciousness: Alert Orientation: x4 Motor Activity: Normal gait Speech: Other (answer some questions but for the most part refuses to engage in evaluation) Language: Adequate Fund of Knowledge: Adequate (unable to assess) Attention and Concentration: Inadequate Memory: Unremarkable (unable to assess, limited cooperation) Mood: Appropriate Affect: Other (guarded) Thought Process & Associations: Other (concrete) Thought Content: Hallucinations Hallucination Type: Auditory (unable to describe them) Delusion Type: None Suicidal Ideation: No Suicidal Plan: No Suicidal Intention: No Homicidal Ideation: No Homicidal Plan: No Homicidal Intention: No Insight: Poor Judgment: Impulsive Results Vitals/IOs Vital Signs Date Time Temp Pulse Resp B/P (MAP) Pulse Ox O2 Delivery O2 Flow Rate FiO2 02/02/17 05:58 97.7 74 16 102/54 (70) 98 Assessment & Plan Problem List: (1) Schizoaffective disorder ICD Codes: F25.9 - Schizoaffective disorder, unspecified Assessment & Plan Patient at this time noted to be more engaging with interview today. Continues endorse intermittent auditory hallucinations but was able to describe them. Patient continues to be noted to be less seclusive more visible on the unit and attending groups but with limited participation. Will continue current treatment. Mother will visit the patient today to provide feedback as to how close patient is at baseline. Discharge planning in progress Justification for Cont. Inpt. At risk for further decompensation if at lower level of care Discharge Planning Patient to return back to mother's residence once psychiatrically stable Mateo Chavira MD Feb 02, 2017 15:45
[2017-02-02 18:47] VITALS: BP 115/59; PULSE 84; RESP 18; TEMP 98.4; O2SAT 100
[2017-02-02] MEDS: QUEtiapine FUMARATE 200 MG TAB PO SCH (21:33)
[2017-02-03 05:56] VITALS: BP 107/52; PULSE 88; RESP 16; TEMP 98.1; O2SAT 99
[2017-02-03] MEDS: VALPROIC ACID 250 MG CAP PO SCH (08:45)
[2017-02-03] MEDS: REMOVE OLD PATCH T-DERMAL SCH (08:45)
[2017-02-03] MEDS: NICOTINE 21 MG/24 HR PATCH T-DERMAL SCH (08:45)
[2017-02-03] MEDS: OLANZapine 10 MG TAB PO SCH (08:45)
[2017-02-03] MEDS: QUEtiapine FUMARATE 25 MG TAB PO SCH ×2 (08:48→15:55)
[2017-02-03] MEDS: QUEtiapine FUMARATE 100 MG TAB PO SCH ×2 (08:50→15:55)
[2017-02-03] MEDS ORDERED: OLAN10TA PO (12:09)
[2017-02-03] MEDS ORDERED: VALP250C PO (12:09)
[2017-02-03] MEDS ORDERED: QUET400T PO (12:09)
[2017-02-03] MEDS ORDERED: QUET1TAB10 PO (12:09)
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
[2017-02-03 17:53] VITALS: BP 122/67; PULSE 94; RESP 16; TEMP 98.3; O2SAT 100
== END 2017-02-03 19:05 | disposition home or self-care (01) | DRG 885 ==
LOC: NEPC 20:49 → NEDA 01-22 18:06 → EDBD 01-22 18:06 → H270 01-22 19:54 → H260 01-24 17:10
PROVIDERS: ADMIT Student in an Organized Health Care Education/Training Program; ATTEND Student in an Organized Health Care Education/Training Program
DX: F25.9 Schizoaffective disorder, unspecified (principal); Z91.14 Patient's other noncompliance with medication regimen
CPT/HCPCS: 80048; 80053; 80061; 80076; 80164; 80307; 83036; 84443; 85025; 93005; 99285; Q0163

== ENCOUNTER 2017-09-16 09:13 | Inpatient (IN) ==
[2017-09-16] MEDS ORDERED: LORazepam 1 MG Tablet PO ONE (09:42)
--- NOTE | 2017-09-16 09:49 | ED ---
HPI General Chief Complaint: Anxiety Stated Complaint: anxiety Time Seen by Provider: 09/16/17 09:32 Source: patient and family Mode of arrival: ambulatory Limitations: other (extremely anxious) History of Present Illness HPI narrative: 37-year-old male presents emergency department with his mother with concerns of extreme anxiety and auditory hallucinations. Patient states that she started hearing noises last night and has persisted throughout the day. His mother assists with a history today. Patient says that he has extreme anxiety and follows [facility] for his psych medications. Mother states that his medication was changed in August and is changed frequently. She says that the medication is not working for him. Patient admits to having trouble sleeping and feels very anxious. Patient has been sleeping very little. He is a difficult time answering my questions directly because he feels so anxious. Denies illicit drug use. Denies fever, chills, chest pain, shortness of breath. complaint: anxiety Onset (ago): day(s) Severity: moderate Quality: constant Place: home History of similar episodes: Yes (pt unsure of when his last episode was) Provoking factors: none known Relieving factors: nothing Related Data Home Medications Medication Instructions Recorded Confirmed divalproex 500 mg PO BID 09/16/17 09/16/17 olanzapine 10 mg PO BID 09/16/17 09/16/17 quetiapine 150 mg PO BID 09/16/17 09/16/17 Allergies Allergy/AdvReac Type Severity Reaction Status Date / Time No Known Allergies Allergy Unverified 01/21/17 21:02 Review of Systems Except as stated in HPI: all other systems reviewed are negative PMFSH Medical History Medical History Anxiety (Acute) Social History Social History Substance History: Active Abuse Second Hand Smoke Exposure: No Smoking Status: Current every day smoker Tobacco Type: Cigarettes How Often Do You Have a Drink Containing Alcohol: Never Recent Travel in [facility] within the Last 8 Weeks: No Recent Out of Country Travel within the Last 8 Weeks: No Immunization History Tetanus Immunization: <5 Years Hx Influenza Vaccine This Season: No Exam Narrative Exam Narrative: GENERAL:, Well-nourished, extremely anxious SKIN: Focused skin assessment warm/dry. HEAD: Atraumatic. Normocephalic. EYES: Pupils equal and round. No scleral icterus. No injection or drainage. ENT: No nasal bleeding or discharge. Mucous membranes pink and moist. NECK: Trachea midline. No JVD. CARDIOVASCULAR: Regular rate and rhythm. No murmur appreciated. RESPIRATORY: No accessory muscle use. Clear to auscultation. Breath sounds equal bilaterally. GASTROINTESTINAL: Abdomen soft, non-tender, nondistended. Hepatic and splenic margins not palpable. MUSCULOSKELETAL: No obvious deformities. No clubbing. No cyanosis. No edema. NEUROLOGICAL: Awake and alert. No obvious cranial nerve deficits. Motor grossly within normal limits. Normal speech. PSYCHIATRIC: Very anxious, appropriate mood, flat affect Course Initial Documented Vital Signs Temperature 98.4 F 09/16/17 09:17 Pulse Rate 98 H 09/16/17 09:17 Respiratory Rate 16 09/16/17 09:17 Blood Pressure 136/66 09/16/17 09:17 Pulse Oximetry 100 09/16/17 09:17 Last Documented Vital Signs Temperature 98.3 F 09/19/17 06:00 Pulse Rate 64 09/19/17 08:13 Respiratory Rate 16 09/19/17 06:00 Blood Pressure 100/56 L 09/19/17 08:13 Pulse Oximetry 98 09/19/17 08:13 Medical Decision Making MDM Narrative Medical decision making narrative: 37-year-old male with history of bipolar disorder, schizoaffective disorder, medication noncompliance presents emergency department with his mother with concerns of extreme anxiety and auditory hallucinations. Patient denies any suicidal or homicidal ideations. Patient does not state that these voices are telling him to do things to himself or other people. After review the EMR, patient presented to the emergency department as a [facility] act January 2017 and was admitted until February 03. The note states that he was in a [facility] for 1-1/2 years for his condition. Labs ordered. Ativan administered for extreme anxiety. Pt is medically cleared to see psych. Lab Data Result diagrams: 09/16/17 10:00 09/17/17 06:36 Lab Results 09/16/17 09/16/17 09/16/17 Range/Units 10:00 10:00 10:00 WBC 6.9 (4.0-11.0) th/mm3 RBC 4.34 L (4.50-5.90) mil/mm3 Hgb 13.1 (13.0-17.0) gm/dL Hct 39.0 (39.0-51.0) % MCV 89.9 (80.0-100.0) fL MCH 30.2 (27.0-34.0) pg MCHC 33.6 (32.0-36.0) % RDW 14.4 (11.6-17.2) % Plt Count 237 (150-450) th/mm3 MPV 8.4 (7.0-11.0) fL Neut % (Auto) 69.8 (16.0-70.0) % Lymph % (Auto) 22.2 (9.0-44.0) % Bandera % (Auto) 5.2 (0.0-8.0) % Eos % (Auto) 2.0 (0.0-4.0) % Baso % (Auto) 0.8 (0.0-2.0) % Neut # (Auto) 4.8 (1.8-7.7) th/mm3 Lymph # (Auto) 1.5 (1.0-4.8) th/mm3 Bandera # (Auto) 0.4 (0.0-0.9) th/mm3 Eos # (Auto) 0.1 (0.0-0.4) th/mm3 Baso # (Auto) 0.1 (0.0-0.2) th/mm3 WBC Differential . Differential Comment Auto diff final Sodium 143 (136-145) meq/L Potassium 3.8 (3.5-5.1) meq/L Chloride 109 H (98-107) meq/L Carbon Dioxide 26.2 (21.0-32.0) meq/L Anion Gap 8 (5-15) meq/L BUN 7 (7-18) mg/dL Creatinine 0.78 (0.60-1.30) mg/dL Estimated GFR Greater than 89 (>89) mL/min Random Glucose 92 (74-106) mg/dL Hemoglobin A1c (4.3-6.0) % Calcium 8.7 (8.5-10.1) mg/dL Total Bilirubin 0.4 (0.2-1.0) mg/dL AST 20 (15-37) U/L ALT 19 (12-78) U/L Alkaline Phosphatase 69 (45-117) U/L Total Protein 6.7 (6.4-8.2) g/dL Albumin 3.7 (3.4-5.0) g/dL Triglycerides (42-150) mg/dL Cholesterol (120-200) mg/dL LDL Cholesterol, Calc (0-99) mg/dL HDL Cholesterol (40.0-60.0) mg/dL Cholesterol/HDL Ratio Ratio TSH 1.180 (0.358-3.740) uIU/mL Urine Opiates Screen Neg (Neg) Ur Barbiturates Screen Neg (Neg) Ur Amphetamines Screen Neg (Neg) U Benzodiazepines Scrn Neg (Neg) Urine Cocaine Screen Neg (Neg) U Cannabinoids Screen Neg (Neg) Serum Alcohol Less than 3 (0-5) mg/dL 09/17/17 09/17/17 Range/Units 06:36 06:36 WBC (4.0-11.0) th/mm3 RBC (4.50-5.90) mil/mm3 Hgb (13.0-17.0) gm/dL Hct (39.0-51.0) % MCV (80.0-100.0) fL MCH (27.0-34.0) pg MCHC (32.0-36.0) % RDW (11.6-17.2) % Plt Count (150-450) th/mm3 MPV (7.0-11.0) fL Neut % (Auto) (16.0-70.0) % Lymph % (Auto) (9.0-44.0) % Bandera % (Auto) (0.0-8.0) % Eos % (Auto) (0.0-4.0) % Baso % (Auto) (0.0-2.0) % Neut # (Auto) (1.8-7.7) th/mm3 Lymph # (Auto) (1.0-4.8) th/mm3 Bandera # (Auto) (0.0-0.9) th/mm3 Eos # (Auto) (0.0-0.4) th/mm3 Baso # (Auto) (0.0-0.2) th/mm3 WBC Differential Differential Comment Sodium 143 (136-145) meq/L Potassium 4.2 (3.5-5.1) meq/L Chloride 111 H (98-107) meq/L Carbon Dioxide 25.0 (21.0-32.0) meq/L Anion Gap 7 (5-15) meq/L BUN 7 (7-18) mg/dL Creatinine 0.71 (0.60-1.30) mg/dL Estimated GFR Greater than 89 (>89) mL/min Random Glucose 96 (74-106) mg/dL Hemoglobin A1c 5.0 (4.3-6.0) % Calcium 8.3 L (8.5-10.1) mg/dL Total Bilirubin (0.2-1.0) mg/dL AST (15-37) U/L ALT (12-78) U/L Alkaline Phosphatase (45-117) U/L Total Protein (6.4-8.2) g/dL Albumin (3.4-5.0) g/dL Triglycerides 110 (42-150) mg/dL Cholesterol 118 L (120-200) mg/dL LDL Cholesterol, Calc 49 (0-99) mg/dL HDL Cholesterol 46.6 (40.0-60.0) mg/dL Cholesterol/HDL Ratio 2.53 Ratio TSH (0.358-3.740) uIU/mL Urine Opiates Screen (Neg) Ur Barbiturates Screen (Neg) Ur Amphetamines Screen (Neg) U Benzodiazepines Scrn (Neg) Urine Cocaine Screen (Neg) U Cannabinoids Screen (Neg) Serum Alcohol (0-5) mg/dL Discharge Plan Discharge Disposition Patient Disposition: 30 Still Patient Discharge Condition Condition: Stable Discharge Details Diagnosis: Anxiety Physicians Team ED Provider: Declan Campbell ED Midlevel Provider: Carlota Silveira Primary Care Provider: UNKNOWN, Attending Provider: Oswaldo Nieto Status ED Status: Left Department Discharge Information Discharge Date/Time: 09/16/17 21:22
[2017-09-16 10:27] LABS: Baso # (Auto) 0.1 th/mm3 (0.0-0.2); Baso % (Auto) 0.8 % (0.0-2.0); Eos # (Auto) 0.1 th/mm3 (0.0-0.4); Hemoglobin 13.1 gm/dL (13.0-17.0); Lymph # (Auto) 1.5 th/mm3 (1.0-4.8); Lymph % (Auto) 22.2 % (9.0-44.0); Mean Corpuscular HGB Conc 33.6 % (32.0-36.0); Mean Corpuscular Hemoglobin 30.2 pg (27.0-34.0); Mean Corpuscular Volume 89.9 fL (80.0-100.0); Mean Platelet Volume 8.4 fL (7.0-11.0); Mono # (Auto) 0.4 th/mm3 (0.0-0.9); Mono % (Auto) 5.2 % (0.0-8.0); Neut # (Auto) 4.8 th/mm3 (1.8-7.7); Neut % (Auto) 69.8 % (16.0-70.0); Platelet Count 237 th/mm3 (150-450); Red Blood Count 4.34 mil/mm3 (4.50-5.90); Red Cell Distribution Width 14.4 % (11.6-17.2); White Blood Count 6.9 th/mm3 (4.0-11.0)
[2017-09-16 10:36] LABS: Amphetamine Screen,Urine Neg (Neg); Barbiturate Screen,Urine Neg (Neg); Cannabinoid Screen,Urine Neg (Neg); Cocaine Screen,Urine Neg (Neg)
[2017-09-16 10:38] LABS: Opiate Screen,Urine Neg (Neg)
[2017-09-16 10:47] LABS: Albumin 3.7 g/dL (3.4-5.0); Anion Gap 8 meq/L (5-15); Aspartate Aminotransferase 20 U/L (15-37); Blood Urea Nitrogen 7 mg/dL (7-18); Calcium 8.7 mg/dL (8.5-10.1); Carbon Dioxide 26.2 meq/L (21.0-32.0); Chloride 109 meq/L (98-107); Glomerular Filtration Rate Greater Than 89 mL/min (>89); Glucose,Random 92 mg/dL (74-106); Potassium 3.8 meq/L (3.5-5.1); Sodium 143 meq/L (136-145)
[2017-09-16 10:59] LABS: Alanine Aminotransferase 19 U/L (12-78); Alkaline Phosphatase 69 U/L (45-117); Total Protein 6.7 g/dL (6.4-8.2)
[2017-09-16] MEDS ORDERED: Aluminum/Magnesium/Simethacone Susp 30 ML UDC PO PRN (21:40)
[2017-09-16] MEDS ORDERED: Acetaminophen 325 MG Tablet PO PRN (21:40)
[2017-09-17 07:24] LABS: Anion Gap 7 meq/L (5-15); Blood Urea Nitrogen 7 mg/dL (7-18); Calcium 8.3 mg/dL (8.5-10.1); Chloride 111 meq/L (98-107); Glomerular Filtration Rate Greater Than 89 mL/min (>89); Glucose,Random 96 mg/dL (74-106); Potassium 4.2 meq/L (3.5-5.1); Sodium 143 meq/L (136-145)
[2017-09-17 07:25] LABS: Cholesterol 118 mg/dL (120-200)
[2017-09-17 07:28] LABS: Chol/HDL Ratio 2.53 Ratio; HDL Cholesterol 46.6 mg/dL (40.0-60.0); LDL Cholesterol,Calculated 49 mg/dL (0-99); Triglycerides 110 mg/dL (42-150)
[2017-09-17] MEDS ORDERED: QUEtiapine 100 MG Tablet PO SCH (09:00)
[2017-09-17] MEDS: OLANZapine 10 MG Tablet PO SCH ×3 (09:22→20:35)
[2017-09-17] MEDS: Divalproex 500 MG ER Tablet PO SCH ×3 (09:22→20:35)
[2017-09-17] MEDS ORDERED: LORazepam 1 MG Tablet PO PRN (13:00)
--- NOTE | 2017-09-17 13:39 | P.HPPSY ---
Provisional Diagnosis Admission Date: September 16, 2017 20:52 [place] I.: Schizoaffective disorder Competence Certification of Person's Competence To Provide Express and Informed Consent I have personally examined Flaco Dia, a person being served at [facility] on, September 17, 2017 1338. Express and informed consent means consent voluntarily given in writing, by a competent person, after sufficient explanation and disclosure of the subject matter involved to enable the person to make a knowing and willful decision without any element of force, fraud, deceit, duress, or other form of constraint or coercion. This person is 18 years of age or older, is not now known to be incompetent to consent to treatment with a guardian advocate, and does not have a health care surrogate or proxy currently making medical treatment decisions. I have found this person to be one of the following: [] Competent to provide express and informed consent, as defined above, for voluntary admission to this facility and is competent to provide express and informed consent for treatment. He/she has the consistent capacity to make well reasoned, willful, and knowing decisions concerning his or her medical or mental health treatment. The person fully and consistently understands the purpose of the admission for examination/placement and is fully capable of personally exercising all rights assured under [place]xxx] Incompetent to provide express and informed consent to voluntary admission , and this is incompetent to provide express and informed consent to treatment. The person must be transferred to involuntary status and a petition for a guardian advocate filed with the Circuit Court. [] Refusing to provide express and informed consent to voluntary admission but is competent to provide express and informed consent for treatment. The person must be discharged or transferred to involuntary status. Form shall be completed within 24 hours of a person's arrival at the receiving facility and filed in the clinical record of each person: 1. Admitted on a voluntary basis 2. Permitted to provide express and informed consent to his/her own treatment 3. Allowed to transfer from involuntary to voluntary status 4. Prior to permitting a person to consent to his or her own treatment after having been previously found incompetent to consent to treatment. History of Present Illness Capacity: Lacks capacity History of Present Illness: Patient is a 37-year-old -[place] man, single, has 3 children, domiciled with mother, unemployed on SSI, with a past psychiatric history of schizoaffective disorder, previous psychiatric admissions including state hospitalization, last time at [facility] in 2017, unknown if previous suicide attempt or self interest behavior, no substance use history, with no past medical history, who was brought into the ED accompanied by mother due to concern of worsening of psychotic symptoms including decreased sleep and command auditory hallucinations which patient was admitted to the inpatient psychiatry unit for further evaluation and management. As per chart ED evaluation as noted: HPI narrative: 37-year-old male presents emergency department with his mother with concerns of extreme anxiety and auditory hallucinations. Patient states that she started hearing noises last night and has persisted throughout the day. His mother assists with a history today. Patient says that he has extreme anxiety and follows [facility] for his psych medications. Mother states that his medication was changed in August and is changed frequently. She says that the medication is not working for him. Patient admits to having trouble sleeping and feels very anxious. Patient has been sleeping very little. He is a difficult time answering my questions directly because he feels so anxious. Denies illicit drug use. Denies fever, chills, chest pain, shortness of breath. Patient was seen with counselor and nurse less participated in group and was able to engage in interview but was short-lived this patient stated he did not want to speak L noted to be internally preoccupied and responding to internal stimuli and was unable to tolerate interview. Patient was able to answer some questions stating that he was single, domiciled with family and unemployed and confirmed that he has outpatient follow-up at [facility] but they could not continue interview. Collateral history was obtained mainly through patient' s mother, Candelario Dia [phone], who states that after patient had left [facility] during his last admission in 2017 patient had not been readmitted to the hospital but recently had been struggling with return of psychotic symptoms despite being followed closely through [facility]. She states that the patient had been noted to be responding to internal stimuli and responding to command auditory hallucinations that tell him to hurt others which she states the patient would say "I am not going to kill her" and yesterday had asked his mother for help which she decided to bring patient to the hospital. She states that he has noticed patient decompensating over the past 2 months, not eating and not sleeping. She agrees to be patient's healthcare surrogate and guardian advocate during this admission and also mentions that she has power of employee benefits attorney over the patient. Past psychiatric history: Previous psychiatric diagnoses of schizoaffective disorder as per chart, has had previous psychiatric hospitalizations in [place], in a state hospitalization as well. Patient last hospitalization here at [facility] was in 2017. There is also history of noncompliance with medications, unknown if previous suicide attempts of images behavior S patient at this time is too symptomatic to provide any history. Substance use history: Denies Past mental history: Denies Allergies: NKDA Social history: Single, has 3 children, domiciled with family and mother, unemployed on SSI. - Inpatient Certification I certify that the inpatient services were ordered in accordance with Medicare regulations governing the order. This includes certification that hospital inpatient services are reasonable and necessary and in the case of services not specified as inpatient-only under 42 CFR 419.22(n), that they are appropriately provided as inpatient services in accordance to with the 2-midnight benchmark under 43 CFR 412.3(e) I certify that inpatient psychiatric hospital services are medically necessary. Evaluation and treatment and/or diagnostic testing are expected to improve the patient's condition. The patient needs on a daily basis, active treatment furnished directly by or requiring the supervision of inpatient psychiatric facility personnel. Estimated Total Length of Stay (Days): 10 Plans for Post Hospital Care: Home Review of Systems All other systems reviewed negative except as stated in HPI PMFSH - History History Provided By: Patient, Family Member, Medical Record - Medical History Medical History: Medical History (Last Updated 09/16/17 @ 09:30 by Yessica Mattson RN) Anxiety (Acute) - Tobacco History Second Hand Smoke Exposure: No Tobacco Use In Past 30 Days: Yes Smoking Status: Current every day smoker Tobacco Type: Cigarettes - Alcohol History How Often Do You Have a Drink Containing Alcohol: Never - Substance Use History Substance History: Active Abuse - Substance Use Type Other Status: Active Route Used: By Mouth, Inhalation Comment: Nicotine - Travel History Recent Travel in the [place] Within the Last 8 Weeks: No Recent Travel Out of the Country Within the Last 8 Weeks: No - Immunization History Tetanus Immunization: <5 Years Hx Influenza Vaccine This Season: No Quality Measures - Psychiatric History Psychological trauma history: Unable to assess due to patient's current symptomatology Violence risk to others in the last 6 months: Elevated due to command auditory hallucinations telling him to hurt others Violence risk to self in the last 6 months: Low - Substance Abuse History Drug or alcohol use in the past 12 months: Denies - Patient Strengths Patient's strengths (minimum of 2): Verbal and communicative Medications and Allergies Active Medications: Active Medications Acetaminophen (Tylenol) 650 mg PO Q4H PRN PRN Reason: Pain 1-5 or Temp >101F Al Hydrox/Mg Hydrox/Simethicone (Mag-Al Plus Susp Liq) 30 ml PO Q6H PRN PRN Reason: DYSPEPSIA Al Hydroxide/Mg Hydroxide (Milk Of Magnesia Liq) 30 ml PO Q12H PRN PRN Reason: Mild Constipation Diphenhydramine HCl (Benadryl) 50 mg PO HS PRN PRN Reason: INSOMNIA Diphenhydramine HCl (Benadryl Inj) 50 mg IM HS PRN PRN Reason: INSOMNIA Divalproex Sodium (Depakote Er) 500 mg PO BID [facility] Last Admin: 09/17/17 09:22 Dose: Not Given Lorazepam (Ativan) 1 mg PO Q6H PRN PRN Reason: ANXIETY AND/OR AGITATION Nicotine (Habitrol 21 Mg Patch.24 Hr) 1 patch T-DERMAL DAILY [facility] Last Admin: 09/17/17 09:23 Dose: Not Given Olanzapine (Zyprexa) 10 mg PO BID [facility] Last Admin: 09/17/17 09:22 Dose: Not Given Quetiapine Fumarate (Seroquel) 100 mg PO BID [facility] Allergies Allergy/AdvReac Type Severity Reaction Status Date / Time No Known Allergies Allergy Unverified 01/21/17 21:02 Home Medications Medication Instructions Recorded Confirmed Type divalproex 500 mg PO BID 09/16/17 09/16/17 History olanzapine 10 mg PO BID 09/16/17 09/16/17 History quetiapine 150 mg PO BID 09/16/17 09/16/17 History Results - Labs CBC & Chem 7: 09/16/17 10:00 09/17/17 06:36 Labs: Laboratory Results - last 24 hr 09/17/17 06:36 Sodium 143 Potassium 4.2 Chloride 111 H Carbon Dioxide 25.0 Anion Gap 7 BUN 7 Creatinine 0.71 Estimated GFR Greater than 89 Random Glucose 96 Calcium 8.3 L Triglycerides 110 Cholesterol 118 L LDL Cholesterol, Calc 49 HDL Cholesterol 46.6 Cholesterol/HDL Ratio 2.53 Exam Vital signs: Vital Signs 09/16/17 13:57 09/16/17 19:51 09/16/17 22:19 Temperature 98.2 F Pulse Rate 81 79 67 Respiratory Rate 20 20 18 Blood Pressure 129/75 103/53 L 117/66 Pulse Oximetry 100 99 99 09/17/17 06:32 Temperature 97.8 F Pulse Rate 65 Respiratory Rate 16 Blood Pressure 100/50 L Pulse Oximetry 98 Intake & Output 09/16/17 09/17/17 09/17/17 18:59 06:59 18:59 Weight 66.224 kg 61.1 kg Other: Weight On Admission 61.1 kg - Constitutional moderate distress, thin, cooperative (Superficially) Mental Status Examination Appearance: Appropriate Consciousness: Alert Orientation: Person, Place Motor Activity: Normal gait Speech: Hesitant Language: Adequate Fund of Knowledge: Inadequate Attention and Concentration: Inadequate Mood: Anxious, Irritable Affect: Irritable Thought Process & Associations: Disorganized Thought Content: Hallucinations, Thought blocking Hallucination Type: Auditory Delusion Type: Paranoid Assessment and Plan - Assessment (1) Schizoaffective disorder Code(s): F25.9 - Schizoaffective disorder, unspecified Status: Acute - Plan Plan: Estimated LOS: [10] days Patient is a 37-year-old -[place] man who carries a diagnosis schizoaffective disorder, previous psychiatric admissions including state hospitalization, history of noncompliance with medications, who was brought to the ED company by mother due to worsening psychotic symptoms which patient requires inpatient stabilization at this time. Petition for involuntary hospitalization started, second opinion requested. Patient's mother will serve as health care surrogate and guardian advocate during this admission as she is also patient's power of employee benefits attorney. We will continue olanzapine 10 mg p.o. twice daily, quetiapine 100 mg p.o. twice daily with downward titration with plan to discontinue quetiapine and subsequently cross titrate risperidone with olanzapine. Continue valproic acid 500 mg p.o. twice daily for mood stabilization. Continue to monitor mood and behavior. Discharge planning in progress. Justification for Continued Inpatient Stay: At risk of further decompensation a lower level of care.
[2017-09-17] MEDS: QUEtiapine 100 MG Tablet PO SCH ×2 (14:45→20:35)
[2017-09-18] MEDS: OLANZapine 10 MG Tablet PO SCH ×2 (09:18→22:54)
[2017-09-18] MEDS: QUEtiapine 100 MG Tablet PO SCH ×2 (09:18→22:53)
[2017-09-18] MEDS: Divalproex 500 MG ER Tablet PO SCH ×2 (09:18→22:53)
--- NOTE | 2017-09-18 14:13 | P.PNPSY ---
Subjective Remarks: Reviewed electronic medical records and discussed case with staff. Follow-up was conducted in patient's room. Nurse reports that patient is a paranoid and noncompliant with his medications which he refuses last night. However with much encouragement he took the medications today. He still appears to be internally stimulated. He does report that he slept well and he had a good appetite today. Mental Status Examination Appearance: Appropriate Consciousness: Alert Orientation: Person, Place Motor Activity: Normal gait Speech: Hesitant Language: Adequate Fund of Knowledge: Inadequate Attention and Concentration: Inadequate Mood: Anxious, Irritable Affect: Irritable Thought Process & Associations: Disorganized Thought Content: Hallucinations, Thought blocking Hallucination Type: Auditory Delusion Type: Paranoid Assessment and Plan - Assessment (1) Schizoaffective disorder Code(s): F25.9 - Schizoaffective disorder, unspecified Status: Acute - Plan Plan: Patient will be reevaluated tomorrow by the attending psychiatrist. Continue with current treatment plan. Justification for Continued Inpatient Stay: Moving this patient to a less restrictive environment would likely result in decompensation.
--- NOTE | 2017-09-19 08:57 | P.CONPSY ---
Provisional Diagnosis Admission Date: September 16, 2017 20:52 Addison I.: 1. Schizoaffective disorder, unspecified type, acute exacerbation Addison II.: Deferred History of Present Illness Service: Psychiatry Consult date: 09/19/17 Reason for Consult: Second opinion for involuntary psychiatric hospitalization Primary Care Provider: UNKNOWN History of Present Illness: Mr. Dia is a 37 year-old male with a history of schizoaffective disorder presently admitted on involuntary status to the inpatient psychiatric unit. Dr. Chavria evaluated the patient for an H&P, and I have reviewed his documentation. Reviewing the electronic medical record, I note that the patient was admitted in January 2017 under the care of Dr. Chavira. Patient seen and examined with nurse. Chart reviewed. Case discussed with nursing staff. Patient has been refusing HS doses of medications but has been accepting most of the daytime doses. On my examination today, the patient says that he came into the hospital because "the voices were getting on my nerves." He denies any audiovisual hallucinations presently but does appear internally stimulated. He denies any SI or HI but seems unreliable to contract for safety. Mood is described as "great" although affect is blunted, tending towards flat. He presents as somewhat guarded and underlying paranoia is suspected. He reports that he is sleeping and eating well. No hypomanic or manic symptoms or depressive symptoms noted. He denies side effects from medications and in particular denies any lightheadedness, chest pain or shortness of breath although his blood pressures have been trending somewhat low. No other physical complaints. Patient is interested in initiating a long- acting injectable. I have discussed the matter with Dr. Chavira who obtained consent for Risperdal from patient's mother/healthcare surrogate with plans to transition to corresponding long-acting injectable. Past psychiatric history: The patient reports a history of "hearing voices." He is not sure if he is under the care of a psychiatrist. Most recent psychiatric admission was here at [facility]. He denies any history of suicide attempts. Family history: The patient denies a family history of mental illness. Chemical dependency history: The patient denies any abuse of drugs or alcohol. Social history: Patient lives with his mother. He is single with no children. He has a grade 12 education. He is on SSI. He denies any access to guns or firearms. Denies any legal issues. Denies any hobbies. Patient has been obtaining psychiatric care through [facility]. I called over to [facility] to obtain medication list. Patient most recently was receiving Zyprexa, Seroquel and Depakote. The patient thought he had been on a long-acting injectable through [facility], but they had no record of this. Spoke with patient's mother/healthcare surrogate [phone]. She notes that the patient has been on Risperdal in the early to mid 1999 and had done well with this agent. He has never been on a long-acting injectable although mother is supportive of initiation of such an agent. We discuss the potential long- acting injectables from Risperdal, namely Risperdal Consta or Invega Sustenna. We discuss patient's legal status. We discuss treatment plan going forward. Mother would like the patient to be on something for sleep, but I did explain to her that the patient has been refusing medications at . I spent about 12 minutes in telephone consultation with patient's mother. Review of Systems All other systems reviewed negative except as stated in HPI (Limitation: Psychosis) [facility] - History History Provided By: Patient, Family Member, Medical Record - Medical History Medical History: Medical History (Last Updated 09/16/17 @ 09:30 by Yessica Mattson RN) Anxiety (Acute) - Tobacco History Second Hand Smoke Exposure: No Tobacco Use In Past 30 Days: Yes Smoking Status: Current every day smoker Tobacco Type: Cigarettes - Alcohol History How Often Do You Have a Drink Containing Alcohol: Never - Substance Use History Substance History: Active Abuse - Substance Use Type Other Status: Active Route Used: By Mouth, Inhalation Comment: Nicotine - Travel History Recent Travel in the [facility] Within the Last 8 Weeks: No Recent Travel Out of the Country Within the Last 8 Weeks: No - Immunization History Tetanus Immunization: <5 Years Hx Influenza Vaccine This Season: No Medications and Allergies Active Medications: Active Medications Acetaminophen (Tylenol) 650 mg PO Q4H PRN PRN Reason: Pain 1-5 or Temp >101F Al Hydrox/Mg Hydrox/Simethicone (Mag-Al Plus Susp Liq) 30 ml PO Q6H PRN PRN Reason: DYSPEPSIA Al Hydroxide/Mg Hydroxide (Milk Of Magnesia Liq) 30 ml PO Q12H PRN PRN Reason: Mild Constipation Diphenhydramine HCl (Benadryl) 50 mg PO HS PRN PRN Reason: INSOMNIA Diphenhydramine HCl (Benadryl Inj) 50 mg IM HS PRN PRN Reason: INSOMNIA Divalproex Sodium (Depakote Er) 500 mg PO BID [facility] Last Admin: 09/18/17 22:53 Dose: Not Given Lorazepam (Ativan) 1 mg PO Q6H PRN PRN Reason: ANXIETY AND/OR AGITATION Nicotine (Habitrol 21 Mg Patch.24 Hr) 1 patch T-DERMAL DAILY [facility] Last Admin: 09/18/17 09:18 Dose: Not Given Olanzapine (Zyprexa) 10 mg PO BID [facility] Last Admin: 09/18/17 22:54 Dose: Not Given Quetiapine Fumarate (Seroquel) 100 mg PO BID [facility] Last Admin: 09/18/17 22:53 Dose: Not Given Allergies Allergy/AdvReac Type Severity Reaction Status Date / Time No Known Allergies Allergy Unverified 01/21/17 21:02 Home Medications Medication Instructions Recorded Confirmed Type divalproex 500 mg PO BID 09/16/17 09/16/17 History olanzapine 10 mg PO BID 09/16/17 09/16/17 History quetiapine 150 mg PO BID 09/16/17 09/16/17 History Exam Vital signs: Vital Signs 09/18/17 18:28 09/19/17 06:00 09/19/17 08:13 Temperature 98.4 F 98.3 F Pulse Rate 78 60 64 Respiratory Rate 18 16 Blood Pressure 104/56 L 92/49 L 100/56 L Pulse Oximetry 98 98 98 Narrative: Physical examination completed by ED provider. On my examination today, the patient appears to be in no acute physical distress. No motor abnormalities noted. Labs and vital signs reviewed: Laboratory Tests 09/16/17 09/16/17 09/16/17 10:00 10:00 10:00 WBC 6.9 Hgb 13.1 Plt Count 237 Sodium Potassium Chloride Carbon Dioxide BUN Creatinine Estimated GFR Hemoglobin A1c AST 20 ALT 19 Alkaline Phosphatase 69 TSH 1.180 Urine Opiates Screen Neg Ur Barbiturates Screen Neg Ur Amphetamines Screen Neg U Benzodiazepines Scrn Neg Urine Cocaine Screen Neg U Cannabinoids Screen Neg Serum Alcohol Less than 3 09/17/17 09/17/17 06:36 06:36 WBC Hgb Plt Count Sodium 143 Potassium 4.2 Chloride 111 H Carbon Dioxide 25.0 BUN 7 Creatinine 0.71 Estimated GFR Greater than 89 Hemoglobin A1c 5.0 AST ALT Alkaline Phosphatase TSH Urine Opiates Screen Ur Barbiturates Screen Ur Amphetamines Screen U Benzodiazepines Scrn Urine Cocaine Screen U Cannabinoids Screen Serum Alcohol Mental Status Examination Appearance: Appropriate Consciousness: Alert Orientation: Person, Place (At least) Motor Activity: Normal gait Speech: Hesitant Language: Adequate Fund of Knowledge: Inadequate Attention and Concentration: Inadequate Memory: Impaired (Psychosis likely interferes) Mood: Anxious Affect: Blunt (Pending towards flat) Thought Process & Associations: Circumstantial Thought Content: Hallucinations, Thought blocking, Delusional Hallucination Type: Other (Appears internally stimulated) Delusion Type: Other (Guarded, suspect underlying paranoia) Suicidal Ideation: No (Unreliable to contract for safety) Suicidal Plan: No Suicidal Intention: No Homicidal Ideation: No (Unreliable to contract for safety) Homicidal Plan: No Homicidal Intention: No Insight: Poor Judgment: Poor Assessment and Plan - Assessment (1) Schizoaffective disorder Code(s): F25.9 - Schizoaffective disorder, unspecified Status: Acute - Plan Plan: Given the circumstances of the patient's presentation here and his presentation on my examination today, I concur with Dr. Chavira that the patient meets criteria for involuntary psychiatric hospitalization under the [place]. I have completed the second opinion paperwork. I will be assuming primary care of the patient. Agree with transition to long-acting injectable antipsychotic. Discontinue Zyprexa and initiate oral Risperdal 0.5 mg twice daily with plans to titrate to effect and then transition to long-acting injectable. Continue Seroquel as ordered and encourage adherence with nighttime doses. I will consolidate patient's Depakote to morning to try to improve compliance with this medication with plans to check a Depakote level after the appropriate interval. Continue other medications and care as ordered. Justification for Continued Inpatient Stay: Medication changes. Impairment in reality construction. High risk for decompensation in less restrictive environment. Discharge Planning: Pending psychiatric stabilization Request Healthcare Surrogate/Guardian Advocate?: Yes (1) Schizoaffective disorder Qualifiers: Schizoaffective disorder type: unspecified Qualified Code(s): F25.9 - Schizoaffective disorder, unspecified
[2017-09-19] MEDS: QUEtiapine 100 MG Tablet PO SCH ×2 (09:42→20:51)
[2017-09-19] MEDS: Divalproex 500 MG ER Tablet PO SCH (09:42)
[2017-09-19] MEDS: risperiDONE 0.5 MG ODT PO SCH ×2 (09:50→20:51)
[2017-09-20] MEDS: Divalproex 500 MG ER Tablet PO SCH (08:32)
[2017-09-20] MEDS: QUEtiapine 100 MG Tablet PO SCH ×2 (08:33→20:59)
[2017-09-20] MEDS: risperiDONE 0.5 MG ODT PO SCH (08:33)
--- NOTE | 2017-09-20 09:05 | P.PNPSY ---
Subjective Remarks: Patient seen and examined. Chart reviewed. Case discussed with nursing staff. Patient noted to remain a little bit bizarre and paranoid. Case discussed in treatment team. Therapists will invite the patient to groups as he has not been attending so far. On my examination today, the patient presents as hypoverbal and flat. He denies AVH but appears somewhat internally stimulated. He remains a little bit watchful. He tells me that he feels "perfect" but I suspect in context that he is 'playing good.' He denies SI or HI. Denies side effects from medications. No hand tremor, no cogwheeling, no other motor abnormalities noted on exam. The patient does refuse to stick out his tongue to check for oral/lingual dyskinesias saying that he does not wish to do so. No physical complaints. Vital Signs Temp Pulse Resp BP Pulse Ox 09/20/17 08:33 68 113/61 09/20/17 06:00 98.3 F 63 18 94/46 L 98 09/19/17 17:56 65 18 114/60 98 Labs reviewed. No new labs. Review of Systems All other systems reviewed negative except as stated in HPI (Limitation: psychosis) Mental Status Examination Appearance: Appropriate Consciousness: Alert Orientation: Person, Place (At least) Motor Activity: Normal gait, Other (Motor exam as above) Speech: Hesitant Language: Adequate Fund of Knowledge: Inadequate Attention and Concentration: Inadequate Memory: Impaired (Psychosis likely interferes) Mood: Other (calm) Affect: Flat, Blunt Thought Process & Associations: Circumstantial Thought Content: Hallucinations, Thought blocking, Delusional Hallucination Type: Other (Remains internally stimulated) Delusion Type: Paranoid Suicidal Ideation: No Homicidal Ideation: No Insight: Poor Judgment: Poor Assessment and Plan - Assessment (1) Schizoaffective disorder Code(s): F25.9 - Schizoaffective disorder, unspecified Status: Acute - Plan Plan: Titrate Risperdal to 1mg BID. Plan remains for long-acting injectable. Continue other psychotropics as ordered. Continue to monitor on the inpatient unit. Continue other care as ordered. Justification for Continued Inpatient Stay: Medication changes. Impairment in reality construction. High risk for decompensation in less restrictive environment. Discharge Planning: Pending psychiatric stabilization. Request Healthcare Surrogate/Guardian Advocate?: Yes (1) Schizoaffective disorder Qualifiers: Schizoaffective disorder type: unspecified Qualified Code(s): F25.9 - Schizoaffective disorder, unspecified
[2017-09-20] MEDS: risperiDONE 1 MG ODT PO SCH (20:59)
[2017-09-21] MEDS: risperiDONE 1 MG ODT PO SCH (09:37)
[2017-09-21] MEDS: Divalproex 500 MG ER Tablet PO SCH (09:37)
[2017-09-21] MEDS: QUEtiapine 100 MG Tablet PO SCH ×2 (09:38→20:14)
--- NOTE | 2017-09-21 10:37 | P.PNPSY ---
Subjective Remarks: Patient seen and examined with counselor. Chart reviewed. Case discussed with nursing staff. Patient remains paranoid. Case discussed with counselor. On my examination today, the patient is seclusive to room. He is discharged focused. He remains paranoid. He denies AVH but continues to appear somewhat internally stimulated. Denies SI or HI. No side effects from medications. No physical complaints. Vital Signs Temp Pulse Resp BP Pulse Ox 09/21/17 06:00 98.3 F 69 17 114/53 L 96 09/20/17 17:30 98.2 F 74 18 114/57 L 96 Labs reviewed. No new labs. Review of Systems All other systems reviewed negative except as stated in HPI (Limitation: Psychosis) Mental Status Examination Appearance: Appropriate Consciousness: Alert Orientation: Person, Place (At least) Motor Activity: Other (No motor abnormalities noted) Speech: Hesitant Language: Adequate Fund of Knowledge: Inadequate Attention and Concentration: Inadequate Memory: Impaired (Psychosis interferes) Mood: Other (calm) Affect: Flat Thought Process & Associations: Intact, Other (Perseverative on discharge) Thought Content: Thought blocking, Delusional Hallucination Type: Other (Internally preoccupied) Delusion Type: Paranoid Suicidal Ideation: No Suicidal Plan: No Suicidal Intention: No Homicidal Ideation: No Homicidal Plan: No Homicidal Intention: No Insight: Poor Judgment: Poor Assessment and Plan - Assessment (1) Schizoaffective disorder Code(s): F25.9 - Schizoaffective disorder, unspecified Status: Acute - Plan Plan: Inadequate response to current therapy. Titrate Risperdal to 2 mg twice daily to target psychosis. Plan remains for long-acting injectable, but we need to make sure that the oral agent is efficacious before initiating a long-acting injectable. Continue other psychotropics as ordered. Justification for Continued Inpatient Stay: Medication changes. Impairment in reality construction. Risk for decompensation in less restrictive environment. Discharge Planning: Pending psychiatric stabilization. Request Healthcare Surrogate/Guardian Advocate?: Yes (1) Schizoaffective disorder Qualifiers: Schizoaffective disorder type: unspecified Qualified Code(s): F25.9 - Schizoaffective disorder, unspecified
[2017-09-21] MEDS: risperiDONE 2 MG ODT PO SCH (20:14)
--- NOTE | 2017-09-22 09:34 | P.PNPSY ---
Subjective Remarks: Patient seen and examined with nurse. Chart reviewed. Case discussed with nursing staff. On my examination today, the patient seems improved. He is less watchful and less internally stimulated. He denies any SI or HI. No side effects from medications. No physical complaints. Spoke with patient's mother/healthcare surrogate. She visited with the patient prior to [place] [address] this morning and found him likewise improved, although she does caution that there may be some degree of playing good to hasten his discharge. We discussed patient's options regarding long-acting injectable antipsychotics and settle on initiation of Invega Sustenna. Vital Signs Temp Pulse Resp BP Pulse Ox 09/22/17 05:47 97.7 F 71 16 102/65 98 09/21/17 18:18 97.6 F 70 16 120/68 99 Intake and Output 09/21/17 09/22/17 09/22/17 22:59 06:59 14:59 Other: Weight 63 kg Labs reviewed. No new labs. Review of Systems All other systems reviewed negative except as stated in HPI Mental Status Examination Appearance: Appropriate Consciousness: Alert Orientation: Person, Place (At least) Motor Activity: Other (No hand tremor, no dystonia, no dyskinesia, no other motor abnormalities noted.) Speech: Hesitant Language: Adequate Fund of Knowledge: Inadequate Attention and Concentration: Other (Fair) Memory: Impaired (Psychosis interferes) Mood: Appropriate Affect: Blunt Thought Process & Associations: Intact Thought Content: Thought blocking (Decreasing) Hallucination Type: Auditory (Decreasing) Delusion Type: Paranoid (Decreasing) Suicidal Ideation: No Suicidal Plan: No Suicidal Intention: No Homicidal Ideation: No Homicidal Plan: No Homicidal Intention: No Insight: Poor Judgment: Poor Assessment and Plan - Assessment (1) Schizoaffective disorder Code(s): F25.9 - Schizoaffective disorder, unspecified Status: Acute - Plan Plan: Patient appears to be responding to oral Risperdal. I will initiate Invega Sustenna 234mg IM today with plans for booster dose after the weekend. Continue oral Risperdal briefly until patient receives booster dose of Sustenna. Plan to check a Depakote level over the weekend. Continue other medications and care as ordered. Patient's case was presented to the [place] act court and placed in continuance for 2 weeks with mother to serve as health care surrogate. Justification for Continued Inpatient Stay: Medication changes. High risk for decompensation in less restrictive environment. Discharge Planning: Pending psychiatric stabilization. Request Healthcare Surrogate/Guardian Advocate?: Yes (1) Schizoaffective disorder Qualifiers: Schizoaffective disorder type: unspecified Qualified Code(s): F25.9 - Schizoaffective disorder, unspecified
[2017-09-22] MEDS: Divalproex 500 MG ER Tablet PO SCH (09:39)
[2017-09-22] MEDS: risperiDONE 2 MG ODT PO SCH ×2 (09:39→21:24)
[2017-09-22] MEDS: QUEtiapine 100 MG Tablet PO SCH ×2 (09:40→21:25)
[2017-09-22] MEDS ORDERED: Paliperidone Inj 234 MG/1.5 ML Syringe IM ONE (14:11)
[2017-09-23] MEDS: QUEtiapine 100 MG Tablet PO SCH ×2 (08:56→21:12)
[2017-09-23] MEDS: Divalproex 500 MG ER Tablet PO SCH (08:56)
[2017-09-23] MEDS: risperiDONE 2 MG ODT PO SCH ×2 (08:57→21:12)
--- NOTE | 2017-09-23 15:52 | P.PNPSY ---
Subjective Remarks: Patient seen and examined with nurse. Chart reviewed. Case discussed with nursing staff. No behavioral issues noted overnight. Case discussed in treatment team. On my examination today, the patient continues to improve with the benefit of psychotropic medication therapy. He continues to display some mild thought blocking but this is improving. Affect is considerably more reactive. He is less paranoid. No internal stimulation. He denies audiovisual loose. Denies SI or HI. Denies side effects from medications. No signs of hyperammonemic encephalopathy on exam. No physical complaints. Vital Signs Temp Pulse Resp BP Pulse Ox 09/23/17 05:34 97.6 F 72 16 120/70 98 Laboratory Results - last 24 hr 09/23/17 09/23/17 07:22 07:22 Ammonia 89 H Valproic Acid 87 Depakote level within the therapeutic range. Ammonia level is somewhat elevated. Review of Systems All other systems reviewed negative except as stated in HPI Mental Status Examination Appearance: Appropriate Consciousness: Alert Orientation: Person, Place, Date/Time (Approximate) Motor Activity: Other (No motor abnormalities noted.) Speech: Hesitant Language: Adequate Fund of Knowledge: Adequate (Fair) Attention and Concentration: Other (Fair) Memory: Unremarkable Mood: Appropriate Affect: Appropriate Thought Process & Associations: Intact Thought Content: Thought blocking (Very mild) Hallucination Type: None Delusion Type: Paranoid (Minimal) Suicidal Ideation: No Suicidal Plan: No Suicidal Intention: No Homicidal Ideation: No Homicidal Plan: No Homicidal Intention: No Insight: Poor Judgment: Poor Assessment and Plan - Assessment (1) Schizoaffective disorder Code(s): F25.9 - Schizoaffective disorder, unspecified Status: Acute - Plan Plan: Continue oral Risperdal supplementing Invega Sustenna with plans to administer booster dose of Sustenna on Tuesday and thereafter discontinue oral Risperdal. I will add some Carnitor for hyperammonemia and recheck an ammonia level after the weekend. Continue other psychotropics as ordered. Continue to monitor on the inpatient unit. Continue other medications and care as ordered. Justification for Continued Inpatient Stay: Risk for decompensation in less restrictive environment. Discharge Planning: Anticipate discharge beginning of next week. Request Healthcare Surrogate/Guardian Advocate?: Yes (1) Schizoaffective disorder Qualifiers: Schizoaffective disorder type: unspecified Qualified Code(s): F25.9 - Schizoaffective disorder, unspecified
[2017-09-23] MEDS: levOCARNitine 10% Oral Liq 100 MG/ML 118 ML Bottle PO SCH (21:13)
[2017-09-24] MEDS: levOCARNitine 10% Oral Liq 100 MG/ML 118 ML Bottle PO SCH ×3 (10:07→20:21)
[2017-09-24] MEDS: Divalproex 500 MG ER Tablet PO SCH (10:10)
[2017-09-24] MEDS: risperiDONE 2 MG ODT PO SCH ×2 (10:11→20:23)
[2017-09-24] MEDS: QUEtiapine 100 MG Tablet PO SCH ×2 (10:11→20:22)
--- NOTE | 2017-09-24 12:25 | P.PNPSY ---
Subjective Remarks: Patient was seen and case discussed with nursing. Patient is pleasant and cooperative with exam. He says now that he is on his medications his hallucinations have resolved. His behaving well on the unit. Thought process is simple and concrete. He is compliant with his medications Mental Status Examination Appearance: Appropriate Consciousness: Alert Orientation: Person, Place, Date/Time (Approximate) Motor Activity: Other (No motor abnormalities noted.) Speech: Hesitant Language: Adequate Fund of Knowledge: Adequate (Fair) Attention and Concentration: Other (Fair) Memory: Unremarkable Mood: Appropriate Affect: Appropriate Thought Process & Associations: Intact Thought Content: Thought blocking (Very mild) Hallucination Type: None Delusion Type: Paranoid (Improving) Suicidal Ideation: No Suicidal Plan: No Suicidal Intention: No Homicidal Ideation: No Homicidal Plan: No Homicidal Intention: No Insight: Poor Judgment: Poor Assessment and Plan - Assessment (1) Schizoaffective disorder Code(s): F25.9 - Schizoaffective disorder, unspecified Status: Acute - Plan Plan: Continue current treatment plan Justification for Continued Inpatient Stay: Patient would decompensate in a less restrictive setting Request Healthcare Surrogate/Guardian Advocate?: Yes (1) Schizoaffective disorder Qualifiers: Schizoaffective disorder type: unspecified Qualified Code(s): F25.9 - Schizoaffective disorder, unspecified
[2017-09-25] MEDS: levOCARNitine 10% Oral Liq 100 MG/ML 118 ML Bottle PO SCH ×3 (10:09→21:04)
[2017-09-25] MEDS: Divalproex 500 MG ER Tablet PO SCH (10:09)
[2017-09-25] MEDS: QUEtiapine 100 MG Tablet PO SCH ×2 (10:09→21:04)
[2017-09-25] MEDS: risperiDONE 2 MG ODT PO SCH ×2 (10:09→21:04)
--- NOTE | 2017-09-25 12:27 | P.PNPSY ---
Subjective Remarks: Patient was seen and case discussed with nursing. Patient had 2 episodes of vomiting last night likely due to his dinner. Per nursing, he was confused and disorganized during these episodes. This morning patient appears at baseline compared to yesterday. He denies auditory or visual hallucinations. Continues with mild thought blocking and disorganized thought process Mental Status Examination Appearance: Appropriate Consciousness: Alert Orientation: Person, Place, Date/Time (Approximate) Motor Activity: Other (No motor abnormalities noted.) Speech: Hesitant Language: Adequate Fund of Knowledge: Adequate (Fair) Attention and Concentration: Other (Fair) Memory: Unremarkable Mood: Appropriate Affect: Appropriate Thought Process & Associations: Intact Thought Content: Thought blocking (Very mild) Hallucination Type: None Delusion Type: Paranoid (Improving) Suicidal Ideation: No Suicidal Plan: No Suicidal Intention: No Homicidal Ideation: No Homicidal Plan: No Homicidal Intention: No Insight: Poor Judgment: Poor Assessment and Plan - Assessment (1) Schizoaffective disorder Code(s): F25.9 - Schizoaffective disorder, unspecified Status: Acute - Plan Plan: Continue current treatment plan Justification for Continued Inpatient Stay: Patient would decompensate in a less restrictive setting Request Healthcare Surrogate/Guardian Advocate?: Yes (1) Schizoaffective disorder Qualifiers: Schizoaffective disorder type: unspecified Qualified Code(s): F25.9 - Schizoaffective disorder, unspecified
[2017-09-26 06:07] VITALS: BP 110/54; PULSE 59; RESP 17; TEMP 98; O2SAT 98
[2017-09-26] MEDS: Divalproex 500 MG ER Tablet PO SCH (08:51)
[2017-09-26] MEDS: QUEtiapine 100 MG Tablet PO SCH (08:52)
[2017-09-26] MEDS: levOCARNitine 10% Oral Liq 100 MG/ML 118 ML Bottle PO SCH ×2 (08:52→16:00)
[2017-09-26] MEDS: risperiDONE 2 MG ODT PO SCH (08:52)
[2017-09-26] MEDS ORDERED: Paliperidone Inj 156 MG/ML Syringe IM ONE (12:40)
--- NOTE | 2017-09-26 12:40 | P.DSPSY ---
Psychiatry Discharge Summary Inpatient Psychiatric care?: Yes Advance Directives: No Mental Health Advance Directive: No Health Care Proxy: No - Admission Admission Date: September 16, 2017 20:52 - Admission Diagnosis (1) Schizoaffective disorder Code(s): F25.9 - Schizoaffective disorder, unspecified Brief History: Patient is a 37-year-old -Citizen Of [place] man, single, has 3 children, domiciled with mother, unemployed on SSI, with a past psychiatric history of schizoaffective disorder, previous psychiatric admissions including state hospitalization, last time at [facility] in 2017, unknown if previous suicide attempt or self interest behavior, no substance use history, with no past medical history, who was brought into the ED accompanied by mother due to concern of worsening of psychotic symptoms including decreased sleep and command auditory hallucinations which patient was admitted to the inpatient psychiatry unit for further evaluation and management. As per chart ED evaluation as noted: HPI narrative: 37-year-old male presents emergency department with his mother with concerns of extreme anxiety and auditory hallucinations. Patient states that she started hearing noises last night and has persisted throughout the day. His mother assists with a history today. Patient says that he has extreme anxiety and follows [facility] for his psych medications. Mother states that his medication was changed in August and is changed frequently. She says that the medication is not working for him. Patient admits to having trouble sleeping and feels very anxious. Patient has been sleeping very little. He is a difficult time answering my questions directly because he feels so anxious. Denies illicit drug use. Denies fever, chills, chest pain, shortness of breath. Patient was seen with counselor and nurse less participated in group and was able to engage in interview but was short-lived this patient stated he did not want to speak L noted to be internally preoccupied and responding to internal stimuli and was unable to tolerate interview. Patient was able to answer some questions stating that he was single, domiciled with family and unemployed and confirmed that he has outpatient follow-up at [facility] but they could not continue interview. Collateral history was obtained mainly through patient' s mother, Candelario Dia [phone], who states that after patient had left [facility] during his last admission in 2017 patient had not been readmitted to the hospital but recently had been struggling with return of psychotic symptoms despite being followed closely through [facility]. She states that the patient had been noted to be responding to internal stimuli and responding to command auditory hallucinations that tell him to hurt others which she states the patient would say "I am not going to kill her" and yesterday had asked his mother for help which she decided to bring patient to the hospital. She states that he has noticed patient decompensating over the past 2 months, not eating and not sleeping. She agrees to be patient's healthcare surrogate and guardian advocate during this admission and also mentions that she has power of estate attorney over the patient. Past psychiatric history: Previous psychiatric diagnoses of schizoaffective disorder as per chart, has had previous psychiatric hospitalizations in [place], in a state hospitalization as well. Patient last hospitalization here at [facility] was in 2017. There is also history of noncompliance with medications, unknown if previous suicide attempts of images behavior S patient at this time is too symptomatic to provide any history. Substance use history: Denies Past mental history: Denies Allergies: NKDA Social history: Single, has 3 children, domiciled with family and mother, unemployed on SSI. Tobacco Use In Past 30 Days: Yes How Often Do You Have a Drink Containing Alcohol: Never Hospital Course: Patient was admitted to a locked, inpatient psychiatric unit. Appropriate precautions were in place throughout patient's hospital stay. Patient was seen and examined daily on the unit by psychiatry and also visited by counselor. Psychotropic medications were adjusted. Patient tolerated medication changes well without side effects. Patient was started on long-acting injectable Invega Sustenna. There was no evidence of suicidality or homicidality on the inpatient unit. Patient had improvement in presenting psychiatric symptoms during his hospital stay. Collateral information was obtained from the patient' s mother. On the day of discharge: Patient seen and examined with nurse. Chart reviewed. Case discussed with nursing staff. No behavioral issues noted overnight. On my examination today, patient requests discharge from the inpatient unit today. He denies any suicidal or homicidal ideation, intent or plan and contracts for safety. I can elicit no depressive or hypomanic/manic symptoms. He denies audiovisual hallucinations, and I can elicit no delusional material. He has perhaps some very mild residual thought blocking. He denies side effects from medications. No evidence of hyperammonemic encephalopathy. We review his discharge medication regimen. He has no physical complaints. I have spoken with patient's mother on day of discharge. She voices no concerns about receiving patient home today. I have reviewed discharge med regimen with mother as well, and we also discussed the need to follow up on the ammonia level. Suicide and violence risk assessment on day of discharge both suggest lower imminent risk, and the patient's level of function is adequate for outpatient care. Patient has maximized benefit from this inpatient psychiatric hospital stay and will be discharged today into mother's care with psychiatric follow up as arranged by counselor. Patient is also to follow up with primary care. Patient counseled to return to psychiatric emergency room for any concerning psychiatric symptoms as part of a general safety plan. I have discontinued patient's oral Risperdal on discharge as oral supplementation is not required with Invega Sustenna. - Discharge Discharge Date: 09/26/17 - Discharge Diagnosis (1) Schizoaffective disorder Diagnosis: Principal (improved versus admission) Code(s): F25.9 - Schizoaffective disorder, unspecified Status: Acute Discharge Disposition: Home - Discharge Instructions Discharge Diet: Regular Diet Activities You Can Perform: Weight Bearing As Tolerat - Discharge Time > 30 minutes Mental Status Examination Appearance: Appropriate Consciousness: Alert Orientation: Person, Place, Date/Time (Approximate) Motor Activity: Other (No abnormal motor movements noted. No tremor, no dystonia, no dyskinesias.) Speech: Hesitant Language: Adequate Fund of Knowledge: Adequate (Fair) Attention and Concentration: Adequate Memory: Unremarkable Mood: Appropriate Affect: Appropriate Thought Process & Associations: Intact Thought Content: Thought blocking (Very mild) Hallucination Type: None Delusion Type: None Suicidal Ideation: No Suicidal Plan: No Suicidal Intention: No Homicidal Ideation: No Homicidal Plan: No Homicidal Intention: No Mental Status Exam Remarks: Insight and judgment are chronically poor. Discharge/Advance Care Plan - Results Vital Signs: Last Vital Signs Temp 98 F 09/26/17 06:00 Pulse 59 L 09/26/17 06:00 Resp 17 09/26/17 06:00 BP 110/54 L 09/26/17 06:00 Pulse Ox 98 09/26/17 06:00 Lab Results: Laboratory Results Hemoglobin A1c 5.0 % (4.3-6.0) 09/17/17 06:36 Triglycerides 110 mg/dL (42-150) 09/17/17 06:36 Cholesterol 118 mg/dL (120-200) L 09/17/17 06:36 LDL Cholesterol, Calc 49 mg/dL (0-99) 09/17/17 06:36 HDL Cholesterol 46.6 mg/dL (40.0-60.0) 09/17/17 06:36 TSH 1.180 uIU/mL (0.358-3.740) 09/16/17 10:00 Valproic Acid 87 mcg/mL (50-100) 09/23/17 07:22 Summary of Procedures: None done Pending Results: None - Medications Number of antipsychotic medications at discharge: 2 Appropriate use of more than 1 antipsychotic med: Justification other than those in allowable values 1-3, document here: (Required multiple antipsychotics for stabilization) - Discharge Care Plan Goals to Promote Your Health: * To prevent worsening of your condition and complications * To maintain your health at the optimal level Directions to Meet Your Goals: Take your medications as prescribed Follow your dietary instruction Follow activity as directed Keep your appointments as scheduled Take your immunizations and boosters as scheduled If your symptoms worsen call your PCP, if no PCP go to Urgent Care Center or Emergency Room For 06/09 questions related to your inpatient stay or results of tests pending at discharge, please contact Dr. Oswaldo Nieto MD at [phone] Smoking is Dangerous to Your Health. Avoid second hand smoking (1) Schizoaffective disorder Qualifiers: Schizoaffective disorder type: unspecified Qualified Code(s): F25.9 - Schizoaffective disorder, unspecified (1) Schizoaffective disorder Qualifiers: Schizoaffective disorder type: unspecified Qualified Code(s): F25.9 - Schizoaffective disorder, unspecified
== END 2017-09-26 19:00 | disposition home or self-care (01) ==
LOC: NEPD 09:13 → NEDA 20:52 → H260 21:17
PROVIDERS: ADMIT Psychiatry & Neurology Psychiatry; ATTEND Psychiatry & Neurology Psychiatry